=== PATIENT | female | born 1975 | race Caucasian/White ===

== ENCOUNTER → 2017-09-07 15:34 | Outpatient (CLI) | payer OTHER, SELFPAY ==
[2017-09-11 12:00] LABS: Fats, Neutral Normal (.); Fats, Total Normal (.)
== END ==
PROVIDERS: Family Provider Family Medicine; PCP Family Medicine; Visit Provider Family Medicine
DX: R19.7 Diarrhea, unspecified (principal)
CPT/HCPCS: 82705; 83630; 87493; 87506

== ENCOUNTER → 2017-09-13 15:08 | Outpatient (CLI) | payer OTHER, SELFPAY ==
[2017-09-13 18:15] LABS: Free T3 1.8 pg/mL (2.18-3.98); T4 Free Direct 1.11 ng/dL (0.76-1.46); Thyroid Stim Hormone (TSH) 0.95 uIU/mL (0.358-3.74)
== END ==
PROVIDERS: Family Provider Family Medicine; PCP Family Medicine; Visit Provider Family Medicine
DX: E03.9 Hypothyroidism, unspecified (principal)
CPT/HCPCS: 36415; 84439; 84443; 84481

== ENCOUNTER → 2018-04-11 12:25 | Outpatient (CLI) | payer OTHER, SELFPAY ==
[2018-04-11 15:42] LABS: Absolute Lymphocyte Count 1.83 X10^3/ul (0.83-4.51); Absolute Neutrophil Count 2.2 X10^3/uL (2.0-7.7); Basophil# 0.02 X10^3/uL; Basophil% 0.5 % (0-1); Eosinophil# 0.06 X10^3/uL; Eosinophils% 1.4 % (0-5); Hematocrit 34.7 % (37-47); Lymphocyte # 1.83 X10^3/ul (4.0); Lymphocyte % 42.1 % (19-41); Mean Corp Hgb Conc 31.7 g/gl (32-36); Mean Corpuscular Hgb 28.9 pg (27.0-32.0); Mean Corpuscular Volume 91.1 fL (81-99); Mean Platelet Vol. 11.8 fl (6.2-12.0); Monocyte# 0.27 X10^3/uL; Monocyte% 6.2 % (0-10); Neutrophil # 2.17 X10^3/uL (2.7-7.7); Neutrophil % 49.8 % (47-70); Platelet Count 239 K/mm3 (150-450); RBC Distribution Width SD 45.5 fl (35.1-43.9); Red Blood Count 3.81 M/mm3 (4.2-5.4); White Blood Count 4.4 K/mm3 (4.4-11.0)
[2018-04-11 15:45] LABS: POSITIVE COUNT NO; POSITIVE DIFFERENTIAL NO; POSITIVE MORPHOLOGY NO
[2018-04-11 15:57] LABS: Erythrocyte Sedimentation Rate 12 mm/hr (0-20)
[2018-04-11 15:58] LABS: AST(SGOT) 24 U/L (15-37); Alanine Aminotransfer ALT/SGPT 27 U/L (13-56); Albumin, Serum 3.7 g/dL (3.2-5.0); Alkaline Phosphatase 69 U/L (45-117); Amylase 99 U/L (25-115); Anion Gap 7 (5-15); BUN 14 mg/dL (7-18); BUN/Creat Ratio 18.1 RATIO (10-20); CRP < 2.90 mg/L (0.0-3.0); Calcium,Total 8.3 mg/dL (8.5-10.1); Chloride 103 mmol/L (98-107); Creatinine, Serum 0.77 mg/dL (0.55-1.02); EST Glomerular Filtration Rate 87 mL/min (>60); Est Glom Filt Rate - Afr Amer 105 mL/min (>60); Globulin 3.7 g/dL (2.2-4.2); Glucose 69 mg/dL (74-106); Lipase 324 U/L (73-393); Potassium 4.1 mmol/L (3.5-5.1); Protein, Total 7.4 g/dL (6.4-8.2); Sodium Level 139 mmol/L (136-145)
== END ==
PROVIDERS: Family Provider Family Medicine; PCP Family Medicine; Visit Provider Family Medicine
DX: R10.9 Unspecified abdominal pain (principal)
CPT/HCPCS: 36415; 80053; 82150; 83690; 85025; 85652; 86140

== ENCOUNTER → 2018-08-22 12:10 | Outpatient (CLI) | payer OTHER, SELFPAY ==
--- NOTE | 2018-08-22 12:19 | RAD_ITS ---
STUDY: X-RAY CHEST REASON FOR EXAM: Female, 43 years old. Difficulty breathing. TECHNIQUE: PA and lateral chest. COMPARISON: None. FINDINGS: The lungs are clear and expanded. There is no demonstrated pleural abnormality. Normal size heart. Normal mediastinum and andrew. Normal visualized pulmonary arteries. Normal visualized aortic arch and descending thoracic aorta. There is a mild thoracic dextroscoliosis. Normal visualized ribs, clavicles, and shoulders. There is no demonstrated abnormality of the visualized soft tissue structures of the upper abdomen. RAD/Chest PA and Lateral IMPRESSION: Mild dextroscoliosis, otherwise negative x-ray examination of the chest. Electronically Signed: Andree Patrick MD at 0:02 EST Tel , Service support ,
[2018-08-22 14:25] LABS: Absolute Lymphocyte Count 1.79 X10^3/ul (0.83-4.51); Absolute Neutrophil Count 2.4 X10^3/uL (2.0-7.7); Basophil# 0.04 X10^3/uL; Basophil% 0.9 % (0-1); Eosinophil# 0.06 X10^3/uL; Eosinophils% 1.3 % (0-5); Hematocrit 36.2 % (37-47); Hemoglobin 11.2 g/dl (12.0-15.0); Lymphocyte # 1.79 X10^3/ul (4.0); Lymphocyte % 38.7 % (19-41); Mean Corp Hgb Conc 30.9 g/gl (32-36); Mean Corpuscular Hgb 26.7 pg (27.0-32.0); Mean Corpuscular Volume 86.2 fL (81-99); Mean Platelet Vol. 11.9 fl (6.2-12.0); Monocyte# 0.36 X10^3/uL; Monocyte% 7.8 % (0-10); Neutrophil # 2.37 X10^3/uL (2.7-7.7); Neutrophil % 51.1 % (47-70); Platelet Count 227 K/mm3 (150-450); RBC Distribution Width CV 14.9 % (11.6-14.6); RBC Distribution Width SD 46.1 fl (35.1-43.9); White Blood Count 4.6 K/mm3 (4.4-11.0)
[2018-08-22 14:27] LABS: Erythrocyte Sedimentation Rate 8 mm/hr (0-20); POSITIVE COUNT NO; POSITIVE DIFFERENTIAL NO; POSITIVE MORPHOLOGY NO
[2018-08-22 14:42] LABS: CRP < 2.90 mg/L (0.0-3.0)
== END ==
PROVIDERS: Family Provider Family Medicine; PCP Family Medicine; Referring Provider Family Medicine; Visit Provider Family Medicine
DX: R22.2 Localized swelling, mass and lump, trunk (principal)
CPT/HCPCS: 36415; 71046; 85025; 85652; 86140

== ENCOUNTER → 2018-09-05 13:03 | Outpatient (CLI) | payer OTHER, SELFPAY ==
--- NOTE | 2018-09-05 13:10 | CT_ITS ---
STUDY: CT CHEST WITH CONTRAST REASON FOR EXAM: Female, 43 years old. Supraclavicular fossa fullness on the left. RADIATION DOSAGE (If Supplied By Facility): CTDIvol = ( 8.31 ) mGy, DLP = ( 259.66 ) mGycm TECHNIQUE: Transaxial imaging was performed following intravenous administration of Isovue 300 100 IV. Individualized dose optimization techniques were used for this CT. COMPARISON: None. FINDINGS: The lungs are normal. There is no demonstrated pleural abnormality. Normal heart and pericardium. Normal mediastinum. Normal hilar regions. Normal enhanced pulmonary arteries. Normal aorta arch and descending thoracic aorta. Mild dextroconvex scoliosis. Otherwise normal skeletal structures. Normal clavicles. No evidence for adenopathy or mass. There is no demonstrated abnormality of the visualized upper abdomen. CT/Chest WITH Contrast IMPRESSION: Normal enhanced CT Chest examination. Electronically Signed: Davide Cheng MD at 23:03 EST , Service support ,
--- NOTE | 2018-09-05 13:25 | RAD_ITS ---
STUDY: X-RAY CHEST REASON FOR EXAM: Female, 43 years old. DYSPNEA, SUPRACLAVICULAR FOSSA FULLNESS; TECHNIQUE: Frontal and lateral views of the chest. COMPARISON: 08/22/2018. FINDINGS: The lungs are clear and expanded. There is no demonstrated pleural abnormality. Normal size heart. Normal mediastinum and andrew. Normal visualized pulmonary arteries. Normal visualized aortic arch and descending thoracic aorta. There is a dextroscoliosis of the thoracic spine. Normal visualized ribs, clavicles, and shoulders. There is no demonstrated abnormality of the visualized soft tissue structures of the upper abdomen. RAD/Chest PA and Lateral IMPRESSION: No acute chest disease. Electronically Signed: Davide Cheng MD at 20:06 EST , Service support ,
== END ==
PROVIDERS: Family Provider Family Medicine; PCP Family Medicine; Referring Provider Family Medicine; Visit Provider Family Medicine
DX: R22.2 Localized swelling, mass and lump, trunk (principal)
CPT/HCPCS: 71046; 71260; Q9967

== ENCOUNTER → 2018-09-10 16:34 | Outpatient (CLI) | payer OTHER, SELFPAY ==
[2018-09-10 17:48] LABS: Absolute Lymphocyte Count 1.82 X10^3/ul (0.83-4.51); Absolute Neutrophil Count 1.9 X10^3/uL (2.0-7.7); Basophil# 0.04 X10^3/uL; Basophil% 0.9 % (0-1); Eosinophil# 0.07 X10^3/uL; Eosinophils% 1.6 % (0-5); Hematocrit 34.5 % (37-47); Hemoglobin 10.6 g/dl (12.0-15.0); Lymphocyte # 1.82 X10^3/ul (4.0); Lymphocyte % 42.7 % (19-41); Mean Corp Hgb Conc 30.7 g/gl (32-36); Mean Corpuscular Hgb 26.4 pg (27.0-32.0); Mean Platelet Vol. 11.4 fl (6.2-12.0); Monocyte% 9.4 % (0-10); Neutrophil # 1.93 X10^3/uL (2.7-7.7); Neutrophil % 45.4 % (47-70); Platelet Count 260 K/mm3 (150-450); RBC Distribution Width SD 46.1 fl (35.1-43.9); Red Blood Count 4.01 M/mm3 (4.2-5.4); White Blood Count 4.3 K/mm3 (4.4-11.0)
[2018-09-10 17:49] LABS: POSITIVE COUNT NO; POSITIVE DIFFERENTIAL NO; POSITIVE MORPHOLOGY NO
[2018-09-10 18:01] LABS: Erythrocyte Sedimentation Rate 16 mm/hr (0-20)
[2018-09-10 18:21] LABS: Vitamin B12 663 pg/mL (211-911); Vitamin D,25 Hydroxy 22.2 ng/mL (29.95-100.01)
[2018-09-10 18:34] LABS: ALB/GLOB Ratio 1.1 RATIO (0.9-2.4); AST(SGOT) 35 U/L (15-37); Alanine Aminotransfer ALT/SGPT 36 U/L (13-56); Alkaline Phosphatase 76 U/L (45-117); Anion Gap 8 (5-15); BUN 11 mg/dL (7-18); BUN/Creat Ratio 15.6 RATIO (10-20); CRP < 2.90 mg/L (0.0-3.0); Calcium,Total 8.1 mg/dL (8.5-10.1); Chloride 104 mmol/L (98-107); EST Glomerular Filtration Rate 97 mL/min (>60); Est Glom Filt Rate - Afr Amer 117 mL/min (>60); Globulin 3.6 g/dL (2.2-4.2); Glucose 69 mg/dL (74-106); Iron 27 ug/dL (50-170); Potassium 3.8 mmol/L (3.5-5.1); Protein, Total 7.6 g/dL (6.4-8.2); Sodium Level 140 mmol/L (136-145); T4 Free Direct 1.08 ng/dL (0.76-1.46); Thyroid Stim Hormone (TSH) 4.07 uIU/mL (0.358-3.74)
[2018-09-13 18:04] LABS: Free T3 1.7 pg/mL (2.18-3.98)
[2018-09-15 03:03] LABS: Alternaria alternata <0.10 kU/L (Class 0); Aspergillus fumigatus <0.10 kU/L (Class 0); Bahia Grass <0.10 kU/L (Class 0); Beef <0.10 kU/L (Class 0); Bermuda Grass <0.10 kU/L (Class 0); Bluegrass, Kentucky <0.10 kU/L (Class 0); Cat Hair/Dander, Standard <0.10 kU/L (Class 0); Cedar, Mountain <0.10 kU/L (Class 0); Chocolate <0.10 kU/L (Class 0); Cladosporium herbarum <0.10 kU/L (Class 0); Cockroach, American <0.10 kU/L (Class 0); Corn <0.10 kU/L (Class 0); D farinae Mite <0.10 kU/L (Class 0); D pteronyssinus <0.10 kU/L (Class 0); Dog Epithelia <0.10 kU/L (Class 0); Egg, Whole <0.10 kU/L (Class 0); Elm, American White <0.10 kU/L (Class 0); Hazelnut Tree <0.10 kU/L (Class 0); Hickory, White <0.10 kU/L (Class 0); Johnson Grass <0.10 kU/L (Class 0); Maple/Box Elder <0.10 kU/L (Class 0); Milk (Cow) <0.10 kU/L (Class 0); Mucor racemosus <0.10 kU/L (Class 0); Mugwort <0.10 kU/L (Class 0); Mulberry, White <0.10 kU/L (Class 0); Nettle <0.10 kU/L (Class 0); Oak, White <0.10 kU/L (Class 0); Peanut <0.10 kU/L (Class 0); Penicillium chrysogen <0.10 kU/L (Class 0); Pigweed, Rough <0.10 kU/L (Class 0); Plantain, English <0.10 kU/L (Class 0); Pork <0.10 kU/L (Class 0); Ragweed, Short/Common <0.10 kU/L (Class 0); Sheep Sorrel(Dock) <0.10 kU/L (Class 0); Soybean <0.10 kU/L (Class 0); Stemphylium herbarum <0.10 kU/L (Class 0); Sweet Gum <0.10 kU/L (Class 0); Sycamore, American <0.10 kU/L (Class 0); Wheat <0.10 kU/L (Class 0)
[2018-09-16 10:59] LABS: ANTINUCLEAR ANTIBODIES DIRECT Negative (Negative)
== END ==
LOC: MFPLAB 16:34
PROVIDERS: Family Provider Family Medicine; PCP Family Medicine; Referring Provider Family Medicine; Visit Provider Family Medicine
DX: E07.89 Other specified disorders of thyroid (principal); R21 Rash and other nonspecific skin eruption; R06.00 Dyspnea, unspecified
CPT/HCPCS: 36415; 80053; 82306; 82607; 83540; 84439; 84443; 84481; 85025; 85652; 86003; 86005; 86038; 86140

== ENCOUNTER → 2018-09-17 11:19 | Outpatient (CLI) | payer OTHER, SELFPAY ==
[2018-09-17 16:06] LABS: PTHIN 30.1 pg/mL (18.4-80.1)
[2018-09-17 16:08] LABS: Free T3 1.9 pg/mL (2.18-3.98); T4 Free Direct 1.18 ng/dL (0.76-1.46)
== END ==
PROVIDERS: Family Provider Family Medicine; PCP Family Medicine; Referring Provider Family Medicine; Visit Provider Family Medicine
DX: E83.51 Hypocalcemia (principal); E07.89 Other specified disorders of thyroid
CPT/HCPCS: 36415; 82330; 83970; 84439; 84481

== ENCOUNTER → 2018-09-25 13:52 | Outpatient (CLI) | payer OTHER, SELFPAY ==
--- NOTE | 2018-09-25 13:57 | ECHOD_ITS ---
Reason For Study: Dyspnea Procedure This was a 2D Doppler, Color Flow transthoracic echocardiogram. Technically difficult due to Breast Implants. Exam performed in department. Left Ventricle Normal size and thickness. The estimated ejection fraction is 65 %. Normal diastology for age. No regional wall motion abnormalities noted. Right Ventricle Normal size and thickness. Normal systolic function. Atria Normal left atrium. Normal right atrium. Normal atrial septum. Mitral Valve The mitral valve is structurally normal. No prolapse or stenosis seen. Tricuspid Valve Normal tricuspid valve. Unable to estimate RV systolic pressure due to inadequate jet, pulmonary artery pressure probably normal. Aortic Valve Normal aortic valve. Trisinus/trileaflet aortic valve. Pulmonic Valve Normal pulmonic valve. Great Vessels Normal aortic root. Normal arch. Normal inferior vena cava. Inferior vena cava collapse with sniff. Pericardium/Pleural No pericardial effusion. MMode/2D Measurements & Calculations LVIDd: 4.1 cm IVSd: 0.76 cm Ao root diam: 2.9 cm LVIDs: 2.7 cm LVPWd: 0.71 cm LA dimension: 2.9 cm RVDd: 2.3 cm FS: 33.9 % LAV(MOD-bp): 32.1 ml LVAd ap4: 23.8 cm2 SV(MOD-sp4): 33.9 ml LAV(MOD-bp) Indexed: 20.4 ml/m2 EDV(MOD-sp4): 62.5 ml LAV(MOD-sp2): 35.7 ml EDV(sp4-el): 62.9 ml LAV(MOD-sp4): 27.8 ml LVAs ap4: 14.7 cm2 ESV(MOD-sp4): 28.6 ml ESV(sp4-el): 29.3 ml EF(MOD-sp4): 54.2 % EF(sp4-el): 53.4 % SV(sp4-el): 33.6 ml LA A4 area: 12.7 cm2 RA A4 area: 6.3 cm2 Time Measurements MV dec time: 0.24 sec Doppler Measurements & Calculations MV E max ryan: 97.1 cm/sec Lat Peak E' Ryan: 16.8 cm/sec Med Peak E' Ryan: 14.2 cm/sec MV A max ryan: 69.9 cm/sec E/E' lat: 5.8 E/E' med: 6.8 MV E/A: 1.4 MV V2 max: 104.9 cm/sec MV P1/2t max ryan: 105.7 cm/sec Ao V2 max: 106.8 cm/sec MV max P.4 mmHg MV P1/2t: 76.2 msec Ao max P.6 mmHg MV V2 mean: 56.8 cm/sec Ao V2 mean: 70.0 cm/sec MV mean P.6 mmHg MV dec slope: 406.2 cm/sec2 Ao mean P.2 mmHg MV V2 VTI: 26.8 cm MVA(P1/2t): 2.9 cm2 Ao V2 VTI: 20.2 cm LV V1 max: 93.2 cm/sec PA V2 max: 95.3 cm/sec LV V1 max P.5 mmHg LV V1 mean P.8 mmHg LV V1 mean: 61.9 cm/sec LV V1 VTI: 20.6 cm Interpretation Summary The estimated ejection fraction is 65 %. Normal diastology for age. Unable to estimate RV systolic pressure due to inadequate jet, pulmonary artery pressure probably normal. There is no comparison study available. Ordering Physician: Hugo Rodriguez Referring Physician: Hugo Rodriguez Performed By: Cuate Riggs RCS
== END ==
LOC: CVS 13:55
PROVIDERS: Family Provider Family Medicine; PCP Family Medicine; Referring Provider Family Medicine; Visit Provider Family Medicine
DX: R06.00 Dyspnea, unspecified (principal)
CPT/HCPCS: 93306

== ENCOUNTER → 2018-10-03 15:24 | Outpatient (CLI) | payer OTHER, SELFPAY ==
--- NOTE | 2018-10-03 15:53 | CT_ITS ---
STUDY: CT ABDOMEN AND PELVIS WITH CONTRAST REASON FOR EXAM: Female, 43 years old. Epigastric pain. History of pancreatitis. Patient is on menstrual cycle. Surgical history of appendectomy and tubal ligation. RADIATION DOSAGE (If Supplied By Facility): CTDIvol = ( 13.93 ) mGy, DLP = ( 368.19 ) mGycm TECHNIQUE: Transaxial images were obtained from the dome of the diaphragm to the symphysis pubis with oral contrast. 100ML IV/Oral Isovue 300 was administered. Sagittal and coronal images were reconstructed. Individualized dose optimization techniques were used for this CT. COMPARISON: None. FINDINGS: The visualized lung bases are unremarkable. The visualized portions of the heart are within normal limits. Normal liver. The patent portal vein diameter is 12 mm. Normal gallbladder. There is mild ectasia of the extrahepatic biliary system, common bile duct measuring 10 mm in diameter. Normal spleen. Normal size and contour of the pancreas. The central pancreatic duct diameter is 4.5 mm. Normal bilateral adrenal glands. Normal right kidney. Normal left kidney. No hydronephrosis. Normal visualized stomach. Normal small intestine. Normal colon. There are surgical clips in the region of the appendix consistent with a prior appendectomy. Normal abdominal aorta. Normal inferior vena cava. Normal retroperitoneum. Nearly empty urinary bladder. Normal size retroverted/retroflexed uterus. Generally gas filled tampon is incidentally noted in the vaginal vault. Heterogeneity in the area of the adnexa consistent with normal follicular cysts. Minimal fluid suggested in the cul-de-sac. Normal abdominal wall. The patient is positioned with a 15 degree levoscoliosis centered at L2. Incidental note of bilateral breast implants. CT/Abdomen/Pelvis WITH Contrast IMPRESSION: 1. Prior appendectomy. The bowel is otherwise unremarkable without sign of obstruction. 2. Normal size retroverted/retroflexed uterus. Tampon noted in the vaginal vault. There are follicular cysts in the ovaries. Minimal fluid suggested in the cul-de-sac. 3. Mild ectasia of the common bile duct and central pancreatic duct without demonstrated obstructive pathology. There may be some degree of partial obstruction at the sphincter of Sarthak, but this is of uncertain clinical significance. Electronically Signed: Jorge Rosa MD at 12:23 EDT , Service support ,
[2018-10-03 17:34] LABS: Basophil# 0.02 X10^3/uL; Basophil% 0.5 % (0-1); Eosinophil# 0.11 X10^3/uL; Eosinophils% 2.6 % (0-5); Lymphocyte % 43.1 % (19-41); Mean Corp Hgb Conc 31.4 g/gl (32-36); Mean Corpuscular Hgb 28.2 pg (27.0-32.0); Mean Corpuscular Volume 89.7 fL (81-99); Mean Platelet Vol. 11.8 fl (6.2-12.0); Monocyte# 0.28 X10^3/uL; Monocyte% 6.7 % (0-10); Neutrophil # 1.97 X10^3/uL (2.7-7.7); Neutrophil % 47.1 % (47-70); POSITIVE COUNT NO; POSITIVE DIFFERENTIAL NO; POSITIVE MORPHOLOGY NO; Platelet Count 240 K/mm3 (150-450); RBC Distribution Width SD 62.4 fl (35.1-43.9); RET-HE 33.2 pg (30-35); Reticulocyte Count 1.68 % (0.5-1.5); White Blood Count 4.2 K/mm3 (4.4-11.0)
[2018-10-03 17:43] LABS: Ferritin 24 ng/mL (8-252); Iron 95 ug/dL (50-170); Iron Binding Capacity,Total 315 ug/dL (250-450); PERCENT IRON SATURATION 30.2 % (15.0-55.0)
[2018-10-07 20:06] LABS: Endomysial Antibody IgA Negative (Negative)
[2018-10-08 13:11] LABS: Immunoglobulin A 174 mg/dL (87-352); t-Transglutaminase IgA <2 U/mL (0-3)
== END ==
PROVIDERS: Family Provider Family Medicine; PCP Family Medicine; Referring Provider Family Medicine; Visit Provider Family Medicine
DX: D64.9 Anemia, unspecified (principal); R22.1 Localized swelling, mass and lump, neck
CPT/HCPCS: 36415; 74177; 82728; 82784; 83516; 83540; 83550; 85025; 85045; 86255; Q9967

== ENCOUNTER → 2018-10-16 14:17 | Outpatient (CLI) | payer OTHER, SELFPAY ==
[2018-10-16 16:35] LABS: Erythrocyte Sedimentation Rate 5 mm/hr (0-20)
[2018-10-16 16:39] LABS: ALB/GLOB Ratio 1.2 RATIO (0.9-2.4); AST(SGOT) 32 U/L (15-37); Alanine Aminotransfer ALT/SGPT 40 U/L (13-56); Alkaline Phosphatase 72 U/L (45-117); Amylase 96 U/L (25-115); Anion Gap 8 (5-15); BUN 10 mg/dL (7-18); BUN/Creat Ratio 13.8 RATIO (10-20); CRP < 2.90 mg/L (0.0-3.0); Calcium,Total 8.2 mg/dL (8.5-10.1); Chloride 104 mmol/L (98-107); Creatinine, Serum 0.72 mg/dL (0.55-1.02); EST Glomerular Filtration Rate 94 mL/min (>60); Est Glom Filt Rate - Afr Amer 113 mL/min (>60); Free T3 1.9 pg/mL (2.18-3.98); Globulin 3.3 g/dL (2.2-4.2); Glucose 64 mg/dL (74-106); Lipase 246 U/L (73-393); Potassium 3.6 mmol/L (3.5-5.1); Protein, Total 7.3 g/dL (6.4-8.2); Rheumatoid Factor < 10.0 IU/mL (<15); Sodium Level 142 mmol/L (136-145); T4 Free Direct 1.11 ng/dL (0.76-1.46); Thyroid Stim Hormone (TSH) 2.28 uIU/mL (0.358-3.74); Uric Acid 3.9 mg/dL (2.6-6.0)
[2018-10-16 17:09] LABS: HIV - WCH Non-Reactive (Nonreactive)
[2018-10-19 15:55] LABS: ANTINUCLEAR ANTIBODIES DIRECT Negative (Negative)
[2018-10-21 11:03] LABS: T4 Total, Thyroxin 11.4 ug/dL (4.8-13.9)
== END ==
PROVIDERS: Family Provider Family Medicine; PCP Family Medicine; Referring Provider Family Medicine; Visit Provider Family Medicine
DX: E07.89 Other specified disorders of thyroid (principal); R10.9 Unspecified abdominal pain; M25.50 Pain in unspecified joint; R53.83 Other fatigue
CPT/HCPCS: 36415; 80053; 82150; 83690; 84436; 84439; 84443; 84481; 84550; 85652; 86038; 86140; 86431; 86703

== ENCOUNTER → 2018-11-13 16:53 | Outpatient (CLI) | payer OTHER, SELFPAY ==
[2018-11-13 18:46] LABS: Free T3 2.2 pg/mL (2.18-3.98); T4 Total, Thyroxin 12.7 ug/dL (4.8-13.9); Thyroid Stim Hormone (TSH) 2.39 uIU/mL (0.358-3.74)
[2018-11-13 19:44] LABS: T4 Total, Thyroxin 12.5 ug/dL (4.8-13.9)
== END ==
PROVIDERS: Family Medicine; Family Provider Family Medicine; PCP Family Medicine; Referring Provider Family Medicine; Visit Provider Family Medicine
DX: E07.89 Other specified disorders of thyroid (principal)
CPT/HCPCS: 36415; 84436; 84443; 84481

== ENCOUNTER → 2019-05-07 16:01 | Outpatient (CLI) | payer OTHER, SELFPAY ==
--- NOTE | 2019-05-07 16:07 | RAD_ITS ---
STUDY: X-RAY - LUMBAR SPINE REASON FOR EXAM: Female, 44 years old. Low back pain. TECHNIQUE: 5 view(s) of the lumbar spine were obtained. COMPARISON: None FINDINGS: Normal lumbar lordosis. There is scoliosis, convexity to the left. There is a normal alignment of the vertebrae. Normal vertebral bodies and endplates. Normal disc space heights. There is no demonstrated fracture. There is no demonstrated spondylolysis of the pars interarticulares. There is mild hypertrophy involving the facets from L3 L4-L5 S1. The soft tissue structures are unremarkable. RAD/L/S Spine Min 4 Views IMPRESSION: Multilevel spondylosis/degenerative disease otherwise normal x-ray examination of the lumbar spine. Electronically Signed: Natalya Champion MD at 3:00 EDT , Service support ,
[2019-05-07 17:51] LABS: Hematocrit 46.4 % (37-47); Hemoglobin 15.4 g/dL (12.0-15.0); Mean Corp Hgb Conc 33.2 g/dL (32-36); Mean Corpuscular Hgb 32.1 pg (27.0-32.0); Mean Corpuscular Volume 96.7 fL (81-99); Mean Platelet Vol. 11.4 fl (6.2-12.0); Platelet Count 241 K/mm3 (150-450); RBC Distribution Width CV 11.6 % (11.6-14.6); RBC Distribution Width SD 41.1 fl (35.1-43.9); White Blood Count 7.4 K/mm3 (4.4-11.0)
[2019-05-07 18:15] LABS: Vitamin D,25 Hydroxy 43.8 ng/mL (29.95-100.01)
[2019-05-07 18:17] LABS: ALB/GLOB Ratio 1.2 RATIO (0.9-2.4); AST(SGOT) 14 U/L (15-37); Alanine Aminotransfer ALT/SGPT 22 U/L (13-56); Albumin, Serum 4.4 g/dL (3.2-5.0); Alkaline Phosphatase 64 U/L (45-117); Anion Gap 8 (5-15); BUN 15 mg/dL (7-18); BUN/Creat Ratio 17.1 RATIO (10-20); Calcium,Total 9.2 mg/dL (8.5-10.1); Chloride 100 mmol/L (98-107); Creatinine, Serum 0.88 mg/dL (0.55-1.02); EST Glomerular Filtration Rate 75 mL/min (>60); Est Glom Filt Rate - Afr Amer 90 mL/min (>60); Globulin 3.7 g/dL (2.2-4.2); Glucose 157 mg/dL (74-106); Potassium 3.5 mmol/L (3.5-5.1); Protein, Total 8.1 g/dL (6.4-8.2); Sodium Level 139 mmol/L (136-145)
== END ==
PROVIDERS: Family Provider Family Medicine; PCP Family Medicine; Referring Provider Family Medicine; Visit Provider Family Medicine
DX: M54.30 Sciatica, unspecified side (principal); R10.9 Unspecified abdominal pain; E07.89 Other specified disorders of thyroid
CPT/HCPCS: 36415; 72110; 80053; 82306; 84443; 85027

== ENCOUNTER → 2019-11-05 16:45 | Outpatient (CLI) | payer OTHER, SELFPAY ==
[2019-11-05 17:35] LABS: Absolute Lymphocyte Count 1.77 X10^3/uL (0.83-4.51); Absolute Neutrophil Count 2.5 X10^3/uL (2.0-7.7); Basophil# 0.03 X10^3/uL; Basophil% 0.6 % (0-1); Eosinophil# 0.07 X10^3/uL; Eosinophils% 1.5 % (0-5); Hematocrit 40.2 % (37-47); Hemoglobin 13.3 g/dL (12.0-15.0); Lymphocyte # 1.77 X10^3/ul (4.0); Lymphocyte % 37.2 % (19-41); Mean Corp Hgb Conc 33.1 g/dL (32-36); Mean Corpuscular Hgb 31.5 pg (27.0-32.0); Mean Corpuscular Volume 95.3 fL (81-99); Mean Platelet Vol. 11.1 fl (6.2-12.0); Monocyte# 0.43 X10^3/uL; NRBC Flagged by Analyzer 0 % (0-5); Neutrophil # 2.45 X10^3/uL (2.7-7.7); Neutrophil % 51.5 % (47-70); Platelet Count 205 K/mm3 (150-450); RBC Distribution Width CV 11.5 % (11.6-14.6); RBC Distribution Width SD 39.8 fl (35.1-43.9); Red Blood Count 4.22 M/mm3 (4.2-5.4); White Blood Count 4.8 K/mm3 (4.4-11.0)
[2019-11-05 17:49] LABS: Erythrocyte Sedimentation Rate 4 mm/hr (0-20)
[2019-11-05 18:15] LABS: ALB/GLOB Ratio 1.2 RATIO (0.9-2.4); AST(SGOT) 17 U/L (15-37); Alanine Aminotransfer ALT/SGPT 22 U/L (13-56); Alkaline Phosphatase 62 U/L (45-117); Amylase 79 U/L (25-115); Anion Gap 5 (5-15); BUN 9 mg/dL (7-18); BUN/Creat Ratio 12.4 RATIO (10-20); Calcium,Total 8.8 mg/dL (8.5-10.1); Chloride 106 mmol/L (98-107); Creatinine, Serum 0.73 mg/dL (0.55-1.02); EST Glomerular Filtration Rate 93 mL/min (>60); Est Glom Filt Rate - Afr Amer 112 mL/min (>60); Ferritin 47 ng/mL (8-252); Globulin 3.3 g/dL (2.2-4.2); Glucose 89 mg/dL (74-106); Iron 119 ug/dL (50-170); Lipase 170 U/L (73-393); Protein, Total 7.3 g/dL (6.4-8.2); Sodium Level 141 mmol/L (136-145); T4 Free Direct 1.27 ng/dL (0.76-1.46); Thyroid Stim Hormone (TSH) 0.45 uIU/mL (0.358-3.74)
[2019-11-05 18:19] LABS: Vitamin D,25 Hydroxy 50.6 ng/mL
== END ==
LOC: MTLAB 16:47
PROVIDERS: PCP Family Medicine; Referring Provider Family Medicine; Visit Provider Family Medicine
DX: R10.9 Unspecified abdominal pain (principal); D64.9 Anemia, unspecified; E07.89 Other specified disorders of thyroid; E55.9 Vitamin D deficiency, unspecified
CPT/HCPCS: 36415; 80053; 82150; 82306; 82728; 83540; 83690; 84439; 84443; 85025; 85652

== ENCOUNTER → 2020-02-04 14:42 | Outpatient (CLI) | payer OTHER, SELFPAY ==
[2020-02-04 17:54] LABS: Absolute Lymphocyte Count 1.69 X10^3/uL (0.83-4.51); Absolute Neutrophil Count 2.4 X10^3/uL (2.0-7.7); Basophil# 0.03 X10^3/uL; Basophil% 0.7 % (0-1); Eosinophil# 0.03 X10^3/uL; Eosinophils% 0.7 % (0-5); Hemoglobin 12.9 g/dL (12.0-15.0); Lymphocyte # 1.69 X10^3/ul (4.0); Lymphocyte % 37.4 % (19-41); Mean Corp Hgb Conc 32.3 g/dL (32-36); Mean Corpuscular Hgb 32.3 pg (27.0-32.0); Mean Corpuscular Volume 100.3 fL (81-99); Mean Platelet Vol. 11.5 fl (6.2-12.0); Monocyte# 0.39 X10^3/uL; Monocyte% 8.6 % (0-10); NRBC Flagged by Analyzer 0 % (0-5); Neutrophil # 2.37 X10^3/uL (2.7-7.7); Neutrophil % 52.4 % (47-70); Platelet Count 223 K/mm3 (150-450); RBC Distribution Width CV 11.9 % (11.6-14.6); RBC Distribution Width SD 44.1 fl (35.1-43.9); Red Blood Count 3.99 M/mm3 (4.2-5.4); White Blood Count 4.5 K/mm3 (4.4-11.0)
[2020-02-04 18:09] LABS: Follicle Stimulating Hormone 5.8 mIU/mL; Luteinizing Hormone 4.8 mIU/mL; T4 Free Direct 1.24 ng/dL (0.76-1.46); Thyroid Stim Hormone (TSH) 1.77 uIU/mL (0.358-3.74)
[2020-02-05 01:28] LABS: Erythrocyte Sedimentation Rate < 1 mm/hr (0-20)
== END ==
PROVIDERS: PCP Family Medicine; Referring Provider Family Medicine; Visit Provider Family Medicine
DX: R23.2 Flushing (principal); M79.10 Myalgia, unspecified site; E07.89 Other specified disorders of thyroid; K81.9 Cholecystitis, unspecified
CPT/HCPCS: 36415; 82533; 83001; 83002; 84439; 84443; 85025; 85652

== ENCOUNTER 2021-10-05 08:27 | Outpatient (CLI) | payer OTHER, SELFPAY ==
[2021-10-05 12:02] LABS: ALB/GLOB Ratio 1.3 RATIO (0.9-2.4); AST(SGOT) 32 U/L (15-37); Alanine Aminotransfer ALT/SGPT 43 U/L (13-56); Alkaline Phosphatase 73 U/L (45-117); Anion Gap 6 (5-15); BUN 11 mg/dL (7-18); BUN/Creat Ratio 13.8 RATIO (10-20); Calcium,Total 8.5 mg/dL (8.5-10.1); Chloride 104 mmol/L (98-107); Cholesterol 145 mg/dL (200); EST Glomerular Filtration Rate 82 mL/min (>60); Est Glom Filt Rate - Afr Amer 100 mL/min (>60); Globulin 3.1 g/dL (2.2-4.2); Glucose 70 mg/dL (74-106); High Density Lipoprotein 59 mg/dL; Potassium 4.1 mmol/L (3.5-5.1); Protein, Total 7.1 g/dL (6.4-8.2); Sodium Level 141 mmol/L (136-145); Thyroid Stim Hormone (TSH) 7.46 uIU/mL (0.358-3.74); Triglycerides 56 mg/dL; Very Low Density Lipoprotein 11 mg/dL (5-40)
== END 2021-10-05 23:59 | disposition home or self-care (01) ==
LOC: MFPLAB 08:30
PROVIDERS: PCP Family Medicine; Referring Provider Family Medicine; Visit Provider Family Medicine
DX: Z00.00 Encounter for general adult medical examination without abnormal findings (principal); E03.9 Hypothyroidism, unspecified; M79.10 Myalgia, unspecified site
CPT/HCPCS: 36415; 80053; 80061; 84443

== ENCOUNTER → 2022-04-26 | Outpatient (CLI) | payer OTHER, SELFPAY ==
[2022-04-26 18:44] LABS: T4 Free Direct 1.13 ng/dL (0.76-1.46); Thyroid Stim Hormone (TSH) 3.68 uIU/mL (0.358-3.74)
== END | disposition home or self-care (01) ==
LOC: MFPLAB 16:41
PROVIDERS: PCP Family Medicine; Referring Provider Family Medicine; Visit Provider Family Medicine
DX: E03.9 Hypothyroidism, unspecified (principal)
CPT/HCPCS: 36415; 84439; 84443

== ENCOUNTER → 2022-11-01 | Outpatient (CLI) | payer OTHER, SELFPAY ==
[2022-11-01 18:30] LABS: Erythrocyte Sedimentation Rate 4 mm/hr (0-30)
[2022-11-01 18:32] LABS: Absolute Lymphocyte Count 1.57 X10^3/uL (0.83-4.51); Absolute Neutrophil Count 3.6 X10^3/uL (2.0-7.7); Basophil# 0.04 X10^3/uL; Basophil% 0.7 % (0-1); Eosinophil# 0.02 X10^3/uL; Eosinophils% 0.4 % (0-5); Hematocrit 38.3 % (37-47); Hemoglobin 12.2 g/dL (12.0-15.0); Lymphocyte # 1.57 X10^3/ul (0.83-4.51); Lymphocyte % 28.6 % (19-41); Mean Corp Hgb Conc 31.9 g/dL (32-36); Mean Corpuscular Hgb 28.1 pg (27.0-32.0); Mean Corpuscular Volume 88.2 fL (81-99); Mean Platelet Vol. 11.3 fl (6.2-12.0); Monocyte% 5.5 % (0-10); NRBC Flagged by Analyzer 0 % (0-5); Neutrophil # 3.55 X10^3/uL (2.7-7.7); Neutrophil % 64.6 % (47-70); Platelet Count 239 K/mm3 (150-450); RBC Distribution Width CV 13.6 % (11.6-14.6); Red Blood Count 4.34 M/mm3 (4.2-5.4); White Blood Count 5.5 K/mm3 (4.4-11.0)
[2022-11-01 18:57] LABS: ALB/GLOB Ratio 1.1 RATIO (0.9-2.4); AST(SGOT) 35 U/L (15-37); Alanine Aminotransfer ALT/SGPT 32 U/L (13-56); Albumin, Serum 3.8 g/dL (3.2-5.0); Alkaline Phosphatase 60 U/L (45-117); Anion Gap 6 (5-15); BUN 8 mg/dL (7-18); BUN/Creat Ratio 9.9 RATIO (10-20); Calcium,Total 8.8 mg/dL (8.5-10.1); Chloride 105 mmol/L (98-107); Creatinine, Serum 0.81 mg/dL (0.55-1.02); EST Glomerular Filtration Rate 81 mL/min (>60); Est Glom Filt Rate - Afr Amer 98 mL/min (>60); Free T3 1.9 pg/mL (2.18-3.98); Globulin 3.5 g/dL (2.2-4.2); Glucose 147 mg/dL (74-106); Potassium 3.9 mmol/L (3.5-5.1); Protein, Total 7.3 g/dL (6.4-8.2); Sodium Level 136 mmol/L (136-145); T4 Free Direct 1.45 ng/dL (0.76-1.46); Thyroid Stim Hormone (TSH) 0.31 uIU/mL (0.358-3.74)
== END | disposition home or self-care (01) ==
LOC: MFPLAB 16:32
PROVIDERS: PCP Family Medicine; Visit Provider Family Medicine
DX: M79.7 Fibromyalgia (principal); E03.9 Hypothyroidism, unspecified; E55.9 Vitamin D deficiency, unspecified
CPT/HCPCS: 36415; 80053; 82306; 84439; 84443; 84481; 85025; 85652

== ENCOUNTER → 2023-04-25 | Outpatient (CLI) | payer OTHER, SELFPAY ==
[2023-04-25 18:27] LABS: Free T3 1.3 pg/mL (2.18-3.98); T4 Free Direct 0.71 ng/dL (0.76-1.46); Thyroid Stim Hormone (TSH) 9.99 uIU/mL (0.358-3.74)
== END | disposition home or self-care (01) ==
PROVIDERS: PCP Family Medicine; Referring Provider Family Medicine; Visit Provider Family Medicine
DX: E03.9 Hypothyroidism, unspecified (principal)
CPT/HCPCS: 36415; 84439; 84443; 84481

== ENCOUNTER → 2023-06-05 | Outpatient (CLI) | payer OTHER, SELFPAY ==
[2023-06-05 16:22] LABS: Free T3 2.2 pg/mL (2.18-3.98); T4 Free Direct 1.38 ng/dL (0.76-1.46); Thyroid Stim Hormone (TSH) 0.35 uIU/mL (0.358-3.74)
== END | disposition home or self-care (01) ==
LOC: MTLAB 14:04
PROVIDERS: PCP Family Medicine; Referring Provider Family Medicine; Visit Provider Family Medicine
DX: E07.89 Other specified disorders of thyroid (principal)
CPT/HCPCS: 36415; 84439; 84443; 84481

== ENCOUNTER → 2023-06-28 | Outpatient (CLI) | payer OTHER, SELFPAY ==
--- NOTE | 2023-06-28 14:06 | CT_ITS ---
EXAM: CT CHEST WITHOUT INTRAVENOUS CONTRAST CLINICAL INDICATION: pulmonary nodule TECHNIQUE: Helically acquired images were obtained of the chest without intravenous contrast. This CT exam was performed using one or more of the following dose reduction techniques: automated exposure control, adjustment of the mA and/or kV according to patient size, and/or use of iterative reconstruction technique. RADIATION DOSE: CTDIvol = 6.28 mGy, DLP = 227.48 mGy-cm COMPARISON: 08/28/2018. FINDINGS: LUNGS AND PLEURAL SPACES: Small somewhat triangular lung nodule right lower lobe posterior medially that minimally abuts the pleura. This is unchanged since the previous examination dated 09/05/2018. 2 mm nodule laterally in the left upper lobe unchanged since previous exam. No pneumothorax. HEART: Unremarkable. Heart size is normal. No pericardial effusion. No significant coronary artery calcifications. MEDIASTINUM: Unremarkable. No mediastinal or hilar adenopathy. Esophagus is unremarkable. No hiatal hernia. THYROID: Unremarkable. No thyroid lesions. BONES/JOINTS: Unremarkable. No suspicious lytic or blastic abnormality. VASCULATURE: Unremarkable. Thoracic aorta is non-dilated. CT/Chest without Contrast IMPRESSION: 1. Small somewhat triangular lung nodule right lower lobe posterior medially that minimally abuts the pleura. This is unchanged since the previous examination dated 09/05/2018. Fleischner Society Guidelines suggest no further follow-up is necessary for patients with s low or high risk of malignancy. 2. 2 mm nodule laterally in the left upper lobe unchanged since previous exam. Fleischner Society Guidelines suggest no further follow-up is necessary for patients with s low risk of malignancy. Electronically Signed: Manuel Alonzo MD at 6:57 EST ,
== END | disposition home or self-care (01) ==
LOC: CT 14:05
PROVIDERS: PCP Family Medicine; Referring Provider Family Medicine; Visit Provider Family Medicine
DX: R91.1 Solitary pulmonary nodule (principal)
CPT/HCPCS: 71250

== ENCOUNTER 2024-01-04 17:23 | Emergency (ER) | payer OTHER, SELFPAY ==
[2024-01-04 17:24] VITALS: BP 136/90; PULSE 91; RESP 18; TEMP 36.4; O2SAT 97; BMI 22.1
--- NOTE | 2024-01-04 18:43 | CT_ITS ---
EXAM: CT HEAD WITHOUT INTRAVENOUS CONTRAST CLINICAL INDICATION: altered mental status TECHNIQUE: Multiple axial images were obtained of the head without intravenous contrast. This CT exam was performed using one or more of the following dose reduction techniques: automated exposure control, adjustment of the mA and/or kV according to patient size, and/or use of iterative reconstruction technique. RADIATION DOSE: CTDIvol = 44.99 mGy, DLP = 796.11 mGy-cm COMPARISON: No relevant prior studies available. FINDINGS: BRAIN AND EXTRA-AXIAL SPACES: Unremarkable. No intra- or extra-axial hemorrhage. No evidence of acute infarct. No intracranial mass or mass effect. There is preservation of the peoples/white matter interface. Posterior fossa structures are unremarkable. Ventricles are appropriate for age. No hydrocephalus. Basal cisterns are patent. BONES/JOINTS: Unremarkable. No discrete lytic or blastic abnormalities. SINUSES: Unremarkable as visualized. Clear. MASTOID AIR CELLS: Unremarkable. Clear. ORBITS: Visualized globes, extraocular muscles, optic nerves and retrobulbar fat appear unremarkable. CT/Brain/Head without Contrast IMPRESSION: Negative head/brain CT without intravenous contrast. Electronically Signed: Cornell Hess MD at 19:33 EDT ,
--- NOTE | 2024-01-04 18:46 | EDS_ITS ---
HPI <PALOMO Beal - Last Filed: 01/04/24 20:16> History of Present Illness Chief Complaint: Confusion Narrative Narrative: Patient is a 48-year-old female patient has history of anxiety, fibromyalgia, hypothyroidism who presents to the emergency department for multiple complaints. Patient dates over the last 2 weeks, she is noticed that her joints from her shoulders elbows to her ankles feel inflamed. Patient dates has been having more pain than usual in the tramadol she takes is not helping. She also states that over the last 2 weeks has been having difficulty remembering certain things, she has been messing up more at work. She has been dealing with increased stress secondary to her dealing with PTSD however the patient states that what is happening to her is not normal. This scared her because she forgot her 's birthday, as well as made some errors at work and she has a new job. Here for evaluation. Denies any headache. Denies any recent fevers or chills. [facility] <PALOMO Beal - Last Filed: 01/04/24 20:16> [facility] Medical History (Updated 01/04/24 @ 20:16 by PALOMO Beal) Crohn disease Fibromyalgia Home Medications ?Medication ?Instructions ?Recorded ?Last Taken ?Type citalopram 40 mg tablet (Celexa) 60 mg PO DAILY 03/27/14 Unknown History tramadol 50 mg tablet 100 mg PO BID 03/27/14 Unknown History Allergy/AdvReac Type Severity Reaction Status Date / Time No Known Allergies Allergy Verified 01/04/24 17:27 Social History Smoking Status: Unknown if ever smoked ROS <PALOMO Beal - Last Filed: 01/04/24 20:16> ROS ED ROS Narrative Constitutional: Negative for fever, chills, weight loss, weakness. Positive feeling fatigued Eyes: Negative for vision loss, vision change, double vision ENT: Negative for any sore throat, ear pain, congestion Cardiovascular: Negative for any chest pain, tightness, palpitations Respiratory: Negative for any cough, sputum production, hemoptysis, dyspnea, dyspnea on exertion, orthopnea Gastrointestinal: Negative for any abdominal pain, nausea, vomiting, diarrhea, constipation, blood in stool, blood in vomit : Negative for any urinary frequency, dysuria, retention, blood in urine Muscle skeletal: Negative for any neck pain, back pain. Positive for generalized myalgias to the shoulders, back, knees and ankles. Neurological: Negative for any headache, syncope, dizziness. Positive for forgetfulness, not thinking clearly Skin: Negative for any rashes, itching, abrasions, lacerations Psychiatric: Negative for any depression, anxiety, suicidal ideation, homicidal ideation. Positive for increased stress Hematologic: Negative for any excessive bruising, easy bleeding EXAM <PALOMO Beal - Last Filed: 01/04/24 20:16> Physical Exam Narrative Exam Narrative: Vital signs reviewed. Patient is in no obvious respiratory distress vital signs are stable. Patient is alert and orient x 4. Patient does seem to be slightly anxious, tearful. HEET: Head normocephalic atraumatic, TMs clear bilaterally. Posterior pharynx is clear, moist mucous membranes. Nares clear bilaterally. Neck: Supple with no lymphadenopathy or tenderness. No signs of meningismus. Cardiac: Regular rate and rhythm no murmurs gallops or rubs, equal peripheral pulses bilaterally. Respiratory: Lungs clear to auscultation bilaterally. No chest tenderness. Abdomen: Soft, nontender, nondistended. No abdominal bruit or pulsatile masses. No hepatosplenomegaly Extremities: No peripheral edema, no signs of gross trauma or deformity. Active full range of motion of all extremities. Neuro: Cranial nerves II through XII intact, no focal neurological deficits. Skin: Clean dry and intact with no rash, purpura, petechiae, vesicles or pustules. Backs/flank: No CVA tenderness, no midline spinal tenderness, no deformity. Psych: Normal mood and affect. No SI, HI or acute psychosis. Const Vital Signs: 01/04/24 17:24 01/04/24 19:30 Temperature 97.6 F L Temperature Source Temporal Pulse Rate 91 80 Respiratory Rate 18 14 Blood Pressure 136/90 H 107/71 Blood Pressure Mean 105 84 Pulse Ox 97 98 Oxygen Delivery Method Room Air <Dr. Emmett Houston DO - Last Filed: 01/04/24 20:33> Physical Exam Const Vital Signs: 01/04/24 17:24 01/04/24 19:30 Temperature 97.6 F L Temperature Source Temporal Pulse Rate 91 80 Respiratory Rate 18 14 Blood Pressure 136/90 H 107/71 Blood Pressure Mean 105 84 Pulse Ox 97 98 Oxygen Delivery Method Room Air [facility] <Gonzalez Monroy PALOMO - Last Filed: 01/04/24 20:16> [facility] Lab Data Labs: Laboratory Results - last 24 hr 01/04/24 01/04/24 18:30 19:40 WBC 4.3 L RBC 3.98 L Hgb 10.4 L Hct 33.2 L MCV 83.4 MCH 26.1 L MCHC 31.3 L RDW Std Deviation 46.4 H RDW Coeff of Hi 15.2 H Plt Count 186 MPV 10.6 Immature Gran % (Auto) 0.200 Neut % (Auto) 81.1 H Lymph % (Auto) 7.5 L [place] % (Auto) 10.3 H Eos % (Auto) 0.2 Baso % (Auto) 0.7 Absolute Neuts (auto) 3.5 Absolute Lymphs (auto) 0.32 L Nucleated RBC % 0 Differential Comment SEE COMMENT Platelet Estimate ADEQUATE RBC Morphology N CHROM Anisocytosis RARE ESR 5 Sodium 132 L Potassium 3.5 Chloride 98 Carbon Dioxide 29.0 Anion Gap 5 BUN 10 Creatinine 0.89 Estim Creat Clear Calc 61.80 Est GFR (MDRD) Af Amer 87 Est GFR (MDRD) Non-Af 72 BUN/Creatinine Ratio 11.2 Glucose 79 Calcium 8.4 L Total Bilirubin 1.20 H AST 27 ALT 23 Alkaline Phosphatase 76 Total Protein 6.9 Albumin 3.6 Globulin 3.3 Albumin/Globulin Ratio 1.1 TSH 0.28 L Urine Color Yellow Urine Clarity Clear Urine pH 6.0 Ur Specific [place] 1.015 Urine Protein Negative Urine Glucose (UA) Normal Urine Ketones 15 H Urine Occult Blood 10 H Urine Nitrite Negative Urine Bilirubin Negative Urine Urobilinogen Normal Ur Leukocyte Esterase Negative Urine RBC 0 SEEN Urine WBC 0 SEEN Ur Squamous Epith Cells 5-10 SEEN Urine Bacteria 2+ Urine Mucus 0 SEEN Radiography Diagnostic Testing: Clinical Impression(s) from Imaging Studies Brain CT 01/04/24 18:43 IMPRESSION: Negative head/brain CT without intravenous contrast. Electronically Signed: Cornell Hess MD at 19:33 EDT , Treatment and Re-Evaluation :: Differential diagnosis includes however is not limited to: Stress response, electrolyte abnormality, brain mass, anxiety, depression, multiple sclerosis patient appears to be in no obvious respiratory distress vital signs are stable. Patient appears nontoxic. Presenting to the emergency department with complaints of bodyaches, joint pain as well as forgetfulness. Patient will re ceive basic laboratory values including inflammatory marker, TSH. Patient received a anti-inflammatory IV as well as some IV fluids. CT scan of the brain will be completed. All radiologic examinations were read, reviewed by the emergency department attending. From these reads, a plan of care will be put in place. Patient CT scan of the brain shows negative head/brain CT scan. Patient laborat ory values showed a slight anemia with a hemoglobin of 10.4, patient has been around this number before. Slight leukopenia, patient's sodium was 132 slightly low. Patient's TSH was 0.28, this is slightly low, I did speak with the patient that she needs to change her dosing on her levothyroxine. Patient's urinalysis was negative for any infection. There was bacteria however there was squamous c ells with no white blood cells no leukocytes, no nitrates. At this time, there is no evidence of any ACS, NC, acute intracranial process. Patient will need to follow-up outpatient. She will speak to her doctor regarding her memory issues as well as her thyroid. She was given strict return precaution. Patient stable for discharge. <Dr. Emmett Houston, DO - Last Filed: 01/04/24 20:33> [facility] Narrative Medical decision making narrative: I have personally performed a face to face assessment of the patient and have reviewed the MICHAEL Note. I performed a substantive portion of the visit including all aspects of the following. My arvizu findings include: History: Patient presents with fuzzy feeling in her head. Patient states she has been forgetful over the last 2 weeks. Patient also states she has had some changes in her vision where if she looks at somebody's face she cannot see the face but she can see the outline of the person. Patient states this has been constant for the past 2 weeks. Patient states nothing makes it better and nothing makes it worse. Patient denies any fevers or chills. Exam: Vital signs are stable except for slightly elevated blood pressure 136/90. Patient is afebrile. Patient is in no acute distress. Cranial nerves II through XII are intact. Strength is 5 out of 5 bilateral in the upper and lower extremities. There are no sensory deficits noted. Oral mucosa is pink and moist. Neck is supple. Trachea is midline. There is no JVD. Heart was regular rate and rhythm. Lungs are clear and equal bilaterally. Abdomen is soft. Bowel sounds are normal. There is no tenderness. Medical Decision Making: Differential diagnosis includes infection, hypothyroidism, stroke, intracranial bleeding, electrolyte abnormality, fibromyalgia, and multiple sclerosis. CT scan of the brain will be obtained to assess for intracranial bleeding. CBC will be obtained to assess for leukocytosis and anemia. Comprehensive metabolic profile will be obtained to assess for hepatic function, renal function, and electrolyte abnormality. TSH will be obtained to assess for hypothyroidism and hyperthyroidism. Urinalysis will be obtained to assess for urinary tract infection and hematuria. Sed rate will be obtained to assess for acute inflammatory marker. Patient was given IV fluids and Toradol. CT scan of the brain was obtained. There is no acute intracranial abnormality. This was interpreted by the radiologist and was also independently reviewed by myself. CBC was reviewed. White blood cell count was slightly low at 4.3. Hemoglobin was slightly low at 10.4 and hematocrit was 33.2. Platelets were normal. Comprehensive metabolic profile was reviewed. Total bilirubin was slightly elevated at 1.2. The remainder was within normal limits. Sed rate was reviewed and was normal at 5. TSH was reviewed and was slightly low at 0.28. Urinalysis was reviewed. There is no evidence of urinary tract infection or hematuria. Patient was advised of her findings. Patient was instructed to follow-up with her primary care physician for further evaluation. Patient was instructed to return if worse in any way. Patient understood and was agreeable with the plan. All questions were answered. Lab Data Labs: Laboratory Results - last 24 hr 01/04/24 01/04/24 18:30 19:40 WBC 4.3 L RBC 3.98 L Hgb 10.4 L Hct 33.2 L MCV 83.4 MCH 26.1 L MCHC 31.3 L RDW Std Deviation 46.4 H RDW Coeff of Hi 15.2 H Plt Count 186 MPV 10.6 Immature Gran % (Auto) 0.200 Neut % (Auto) 81.1 H Lymph % (Auto) 7.5 L [place] % (Auto) 10.3 H Eos % (Auto) 0.2 Baso % (Auto) 0.7 Absolute Neuts (auto) 3.5 Absolute Lymphs (auto) 0.32 L Nucleated RBC % 0 Differential Comment SEE COMMENT Platelet Estimate ADEQUATE RBC Morphology N CHROM Anisocytosis RARE ESR 5 Sodium 132 L Potassium 3.5 Chloride 98 Carbon Dioxide 29.0 Anion Gap 5 BUN 10 Creatinine 0.89 Estim Creat Clear Calc 61.80 Est GFR (MDRD) Af Amer 87 Est GFR (MDRD) Non-Af 72 BUN/Creatinine Ratio 11.2 Glucose 79 Calcium 8.4 L Total Bilirubin 1.20 H AST 27 ALT 23 Alkaline Phosphatase 76 Total Protein 6.9 Albumin 3.6 Globulin 3.3 Albumin/Globulin Ratio 1.1 TSH 0.28 L Urine Color Yellow Urine Clarity Clear Urine pH 6.0 Ur Specific [place] 1.015 Urine Protein Negative Urine Glucose (UA) Normal Urine Ketones 15 H Urine Occult Blood 10 H Urine Nitrite Negative Urine Bilirubin Negative Urine Urobilinogen Normal Ur Leukocyte Esterase Negative Urine RBC 0 SEEN Urine WBC 0 SEEN Ur Squamous Epith Cells 5-10 SEEN Urine Bacteria 2+ Urine Mucus 0 SEEN Radiography Diagnostic Testing: Clinical Impression(s) from Imaging Studies Brain CT 01/04/24 18:43 IMPRESSION: Negative head/brain CT without intravenous contrast. Electronically Signed: Cornell Hess MD at 19:33 EDT Reading Location ID and State: [facility] / [place] , Service support , Discharge Plan Triage Chief Complaint: Confusion Other Complaint: Abd Pain ED Midlevel Provider: Gonzalez Monroy ED Provider: Emmett Houston Dx/Rx/DC Orders Clinical Impression: Episodic memory loss, Joint pain, Fibromyalgia Instructions: ED Confusion, ED Myalgias, ED Fibromyalgia Prescriptions: No Action citalopram [Celexa] 40 MG tablet 60 mg PO DAILY tramadol 50 MG tablet 100 mg PO BID Primary Care Provider: Hugo Rodriguez Referrals: Hugo Rodriguez MD [Primary Care Provider] - Activity Restrictions/Additional Instructions: You need to follow-up with your PCP regarding your memory loss issues. Also that you are TSH level is low, we need to decrease your levothyroxine dose. Print Language: Luxembourgish Disposition Disposition: Home, Self Care
[2024-01-04 18:59] LABS: Absolute Lymphocyte Count 0.32 X10^3/uL (0.83-4.51); Absolute Neutrophil Count 3.5 X10^3/uL (2.0-7.7); Basophil# 0.03 X10^3/uL; Basophil% 0.7 % (0-1); Eosinophil# 0.01 X10^3/uL; Eosinophils% 0.2 % (0-5); Hematocrit 33.2 % (37-47); Hemoglobin 10.4 g/dL (12.0-15.0); Lymphocyte # 0.32 X10^3/ul (0.83-4.51); Lymphocyte % 7.5 % (19-41); Mean Corp Hgb Conc 31.3 g/dL (32-36); Mean Corpuscular Hgb 26.1 pg (27.0-32.0); Mean Corpuscular Volume 83.4 fL (81-99); Mean Platelet Vol. 10.6 fl (6.2-12.0); Monocyte# 0.44 X10^3/uL; Monocyte% 10.3 % (0-10); NRBC Flagged by Analyzer 0 % (0-5); Neutrophil # 3.46 X10^3/uL (2.7-7.7); Neutrophil % 81.1 % (47-70); POSITIVE DIFFERENTIAL YES; Platelet Count 186 K/mm3 (150-450); RBC Distribution Width CV 15.2 % (11.6-14.6); RBC Distribution Width SD 46.4 fl (35.1-43.9); Red Blood Count 3.98 M/mm3 (4.2-5.4); White Blood Count 4.3 K/mm3 (4.4-11.0)
[2024-01-04 19:00] LABS: Differential Indicated SCAN CRITERIA MET
[2024-01-04] MEDS: 0.9% Normal Saline (1000mL) 1,000 ML 999 ML IV (19:00)
[2024-01-04] MEDS: Ketorolac 15 MG/ML Vial IV (19:00)
[2024-01-04 19:16] LABS: Erythrocyte Sedimentation Rate 5 mm/hr (0-30)
[2024-01-04 19:22] LABS: ALB/GLOB Ratio 1.1 RATIO (0.9-2.4); AST(SGOT) 27 U/L (15-37); Alanine Aminotransfer ALT/SGPT 23 U/L (13-56); Albumin, Serum 3.6 g/dL (3.2-5.0); Alkaline Phosphatase 76 U/L (45-117); Anion Gap 5 (5-15); BUN 10 mg/dL (7-18); BUN/Creat Ratio 11.2 RATIO (10-20); Calcium,Total 8.4 mg/dL (8.5-10.1); Chloride 98 mmol/L (98-107); Creatinine, Serum 0.89 mg/dL (0.55-1.02); EST Glomerular Filtration Rate 72 mL/min (>60); Est Glom Filt Rate - Afr Amer 87 mL/min (>60); Globulin 3.3 g/dL (2.2-4.2); Glucose 79 mg/dL (74-106); Potassium 3.5 mmol/L (3.5-5.1); Protein, Total 6.9 g/dL (6.4-8.2); Sodium Level 132 mmol/L (136-145); Thyroid Stim Hormone (TSH) 0.28 uIU/mL (0.358-3.74)
[2024-01-04 19:28] LABS: Anisocytosis RARE; Platelet Estimate ADEQUATE (ADEQ); Red Cell Morphology N CHROM NORMAL (NORM C&C)
[2024-01-04 19:30] VITALS: BP 107/71; PULSE 80; RESP 14; O2SAT 98
[2024-01-04 19:44] LABS: Mucous, Urine 0 SEEN /hpf (<or=2+); Red Blood Cells-Urine 0 SEEN /hpf (0-5); White Blood Cells 0 SEEN /hpf (0-5)
[2024-01-04 19:48] LABS: Color, Urine Yellow (Yellow); Glucose, Dipstick Normal (Normal); Ketone-Dipstick 15 mg/dl (Negative); Leukocyte Esterase-Dipstick Negative /ul (Negative); Nitrite-Dipstick Negative (Negative); Occult Blood-Urine 10 /ul (Negative); Protein-Dipstick Negative (Negative); Specific Gravity, Urine 1.015 (1.002-1.030); Urine Bilirubin Dipstick Negative (Negative); Urine Clarity Clear (Clear); Urine Urobilinogen Normal (Normal)
[2024-01-04 20:08] LABS: Bacteria 2+ /hpf (None Seen); Squamous Epithelial Cells - UA 5-10 SEEN /hpf (5-10)
[2024-01-04 20:32] VITALS: BP 97/61; PULSE 78; RESP 11; TEMP 36.6; O2SAT 99
== END 2024-01-04 20:35 | disposition home or self-care (01) ==
PROVIDERS: Nurse Practitioner; Emergency Provider Emergency Medicine; PCP Family Medicine; Visit Provider Emergency Medicine
DX: R41.0 Disorientation, unspecified (principal); M79.7 Fibromyalgia
CPT/HCPCS: 70450; 80053; 81001; 84443; 85025; 85652; 96361; 96374; 99284; J7030; A4216

== ENCOUNTER → 2024-04-28 | Outpatient (CLI) | payer OTHER, SELFPAY ==
[2024-04-28 15:26] LABS: Hemoglobin 10.9 g/dL (12.0-15.0); Mean Corp Hgb Conc 31.1 g/dL (32-36); Mean Corpuscular Hgb 26.8 pg (27.0-32.0); Mean Platelet Vol. 11.5 fl (6.2-12.0); Platelet Count 250 K/mm3 (150-450); RBC Distribution Width CV 14.9 % (11.6-14.6); RBC Distribution Width SD 46.5 fl (35.1-43.9); Red Blood Count 4.07 M/mm3 (4.2-5.4); White Blood Count 4.6 K/mm3 (4.4-11.0)
[2024-04-28 15:42] LABS: Erythrocyte Sedimentation Rate 9 mm/hr (0-30)
[2024-04-28 16:02] LABS: ALB/GLOB Ratio 1.1 RATIO (0.9-2.4); AST(SGOT) 57 U/L (15-37); Alanine Aminotransfer ALT/SGPT 45 U/L (13-56); Albumin, Serum 3.8 g/dL (3.2-5.0); Alkaline Phosphatase 68 U/L (45-117); Anion Gap 3 (5-15); BUN 10 mg/dL (7-18); BUN/Creat Ratio 12.5 RATIO (10-20); CRP < 2.90 mg/L (0.0-3.0); Calcium,Total 8.8 mg/dL (8.5-10.1); Chloride 104 mmol/L (98-107); Cholesterol 291 mg/dL (200); EST Glomerular Filtration Rate 81 mL/min (>60); Est Glom Filt Rate - Afr Amer 98 mL/min (>60); Ferritin 7 ng/mL (8-252); Free T3 1.4 pg/mL (2.18-3.98); Globulin 3.6 g/dL (2.2-4.2); Glucose 70 mg/dL (74-106); High Density Lipoprotein 81 mg/dL; Iron 34 ug/dL (50-170); Potassium 3.9 mmol/L (3.5-5.1); Protein, Total 7.4 g/dL (6.4-8.2); Sodium Level 136 mmol/L (136-145); T4 Free Direct 0.86 ng/dL (0.76-1.46); Triglycerides 78 mg/dL; Very Low Density Lipoprotein 16 mg/dL (5-40)
== END | disposition home or self-care (01) ==
PROVIDERS: PCP Family Medicine; Referring Provider Family Medicine; Visit Provider Family Medicine
DX: D64.9 Anemia, unspecified (principal); E07.89 Other specified disorders of thyroid; E78.5 Hyperlipidemia, unspecified; M79.7 Fibromyalgia
CPT/HCPCS: 36415; 80053; 80061; 82728; 83540; 84439; 84443; 84481; 85027; 85652; 86140

== ENCOUNTER 2024-05-01 08:30 | Emergency (ER) | payer OTHER, SELFPAY ==
[2024-05-01 08:30] VITALS: BP 105/81; PULSE 77; RESP 14; TEMP 36.4; O2SAT 100; BMI 23.5
--- NOTE | 2024-05-01 09:13 | CT_ITS ---
EXAM: CT ABDOMEN AND PELVIS WITH INTRAVENOUS CONTRAST CLINICAL INDICATION: upper abdominal pain TECHNIQUE: Helically acquired images were obtained of the abdomen and pelvis with intravenous contrast. This CT exam was performed using one or more of the following dose reduction techniques: automated exposure control, adjustment of the mA and/or kV according to patient size, and/or use of iterative reconstruction technique. CONTRAST: IV 100mL [id number] COMPARISON: CT Abdomen Pelvis dated 10/03/2018 FINDINGS: LOWER THORAX: Normal. Lung bases are clear. No cardiomegaly. No pericardial effusion. ABDOMEN: LIVER: Normal. Homogeneous. No focal mass. GALLBLADDER AND BILE DUCTS: Interval cholecystectomy. Common bile duct measures 13 mm in maximum diameter without evidence of an obstructing stone or mass. PANCREAS: Pancreatic duct is dilated measuring 8 mm in maximum diameter. No evidence of acute pancreatitis or underlying pancreatic mass. SPLEEN: Normal. Normal size without focal cystic or solid mass. ADRENALS: Normal. No nodules. KIDNEYS AND URETERS: Normal. Normal renal size and position. No hydronephrosis. STOMACH AND BOWEL: Air-fluid levels noted within the distended small bowel loops suggestive of ileus. Low-grade small bowel obstruction not entirely excluded. PELVIS: APPENDIX: Surgical clips at the base of the cecum consistent with appendectomy. BLADDER: Normal. REPRODUCTIVE: Uterus is retroflexed. Vaginal tampon in place. ABDOMEN and PELVIS: INTRAPERITONEAL SPACE: Normal. No ascites or other fluid collection. No free air. BONES/JOINTS: No suspicious lytic or blastic abnormality. SOFT TISSUES: Normal. No discrete abdominal or pelvic wall hernia. VASCULATURE: Normal. Abdominal aorta is non-dilated. LYMPH NODES: Normal. No enlarged lymph nodes. CT/Abdomen/Pelvis W IV Cont ONLY IMPRESSION: 1. Interval dilatation of the biliary and pancreatic ducts status post cholecystectomy with no evidence of an obstructing stone or mass. Follow-up MRCP recommended if there is clinical concern for cholestasis. 2. Mild small bowel ileus versus low-grade small bowel obstruction. Electronically Signed: Quincy Eller MD at 10:12 EDT ,
[2024-05-01 09:21] LABS: Absolute Lymphocyte Count 1.47 X10^3/uL (0.83-4.51); Absolute Neutrophil Count 2.7 X10^3/uL (2.0-7.7); Basophil# 0.04 X10^3/uL; Basophil% 0.9 % (0-1); Eosinophil# 0.07 X10^3/uL; Eosinophils% 1.5 % (0-5); Hematocrit 38.5 % (37-47); Hemoglobin 12.1 g/dL (12.0-15.0); Lymphocyte # 1.47 X10^3/ul (0.83-4.51); Lymphocyte % 31.7 % (19-41); Mean Corp Hgb Conc 31.4 g/dL (32-36); Mean Corpuscular Hgb 27.3 pg (27.0-32.0); Mean Corpuscular Volume 86.7 fL (81-99); Mean Platelet Vol. 10.6 fl (6.2-12.0); Monocyte# 0.38 X10^3/uL; Monocyte% 8.2 % (0-10); NRBC Flagged by Analyzer 0 % (0-5); Neutrophil # 2.66 X10^3/uL (2.7-7.7); Neutrophil % 57.5 % (47-70); Platelet Count 283 K/mm3 (150-450); RBC Distribution Width CV 15.1 % (11.6-14.6); RBC Distribution Width SD 47.8 fl (35.1-43.9); Red Blood Count 4.44 M/mm3 (4.2-5.4); White Blood Count 4.6 K/mm3 (4.4-11.0)
[2024-05-01] MEDS: HYDROmorphone 1 MG/ML Syringe 0.5 MG IV (09:29)
[2024-05-01] MEDS: Ondansetron 4 MG/2 ML Vial IV (09:29)
[2024-05-01 09:32] LABS: Internal QC Validated? YES +Cl - CLEAR BKGD; Pregnancy, Serum, hCG Quali. NEGATIVE Negative
[2024-05-01 09:56] LABS: AST(SGOT) 41 U/L (15-37); Alanine Aminotransfer ALT/SGPT 42 U/L (13-56); Albumin, Serum 4.1 g/dL (3.2-5.0); Alkaline Phosphatase 76 U/L (45-117); Anion Gap 5 (5-15); BUN 15 mg/dL (7-18); BUN/Creat Ratio 15.9 RATIO (10-20); Bilirubin, Direct 0.23 mg/dL (0.00-0.30); Calcium,Total 9.2 mg/dL (8.5-10.1); Chloride 103 mmol/L (98-107); Creatinine, Serum 0.94 mg/dL (0.55-1.02); EST Glomerular Filtration Rate 67 mL/min (>60); Est Glom Filt Rate - Afr Amer 81 mL/min (>60); Estimated Creatinine Clearance 57.89 ml/min; Glucose 78 mg/dL (74-106); Lipase 77 U/L (13-75); Potassium 3.7 mmol/L (3.5-5.1); Protein, Total 8.1 g/dL (6.4-8.2); Sodium Level 137 mmol/L (136-145)
[2024-05-01 10:29] LABS: Bacteria 0 SEEN /hpf (None Seen); Mucous, Urine 0 SEEN /hpf (<or=2+); Red Blood Cells-Urine 0 SEEN /hpf (0-5); White Blood Cells 0 SEEN /hpf (0-5)
[2024-05-01 10:35] LABS: Color, Urine Yellow (Yellow); Glucose, Dipstick Normal (Normal); Ketone-Dipstick Negative (Negative); Leukocyte Esterase-Dipstick Negative /ul (Negative); Nitrite-Dipstick Negative (Negative); Occult Blood-Urine 10 /ul (Negative); Protein-Dipstick Negative (Negative); Specific Gravity, Urine 1.005 (1.002-1.030); Urine Bilirubin Dipstick Negative (Negative); Urine Clarity Clear (Clear); Urine Urobilinogen Normal (Normal); Urine pH 6.5 (5.0 - 8.0)
[2024-05-01 10:43] LABS: Squamous Epithelial Cells - UA 0-5 SEEN /hpf (5-10)
[2024-05-01 10:52] VITALS: BP 111/78; PULSE 72; RESP 16; O2SAT 98
[2024-05-01] MEDS: Ketorolac 30 MG/ML Syringe IV (11:56)
[2024-05-01 12:10] VITALS: BP 100/73; PULSE 80; RESP 16
[2024-05-01 12:34] VITALS: BP 100/73; PULSE 80; RESP 16; TEMP 36.6; O2SAT 98
--- NOTE | 2024-05-01 13:47 | EDS_ITS ---
HPI HPI - GI History of Present Illness Chief Complaint: Abd Pain Informant: patient Narrative Narrative: 49-year-old female presenting to the emergency room with several day history of pain in right upper quadrant seen towards the right flank. Patient not experiencing fever. No vomiting no diarrhea no urinary symptoms. She has had prior cholecystectomy. States she has had a history of pancreatitis before. [facility] Medical History Cholecystectomy planned Pancreatitis Crohn disease Fibromyalgia Home Medications ?Medication ?Instructions ?Recorded ?Last Taken ?Type citalopram 40 mg tablet (Celexa) 60 mg PO DAILY 03/27/14 Unknown History tramadol 50 mg tablet 100 mg PO Q6H 03/27/14 Unknown History escitalopram oxalate 20 mg tablet 20 mg PO DAILY 05/01/24 Unknown History ferrous sulfate 325 mg (65 mg 325 mg PO DAILY 05/01/24 Unknown History iron) tablet (FeroSul) gabapentin 400 mg capsule 400 mg PO Q12H 05/01/24 Unknown History levothyroxine 112 mcg tablet 112 mcg PO DAILY 05/01/24 Unknown History rosuvastatin 5 mg tablet 5 mg PO DAILY 05/01/24 Unknown History Allergy/AdvReac Type Severity Reaction Status Date / Time No Known Allergies Allergy Verified 05/01/24 08:31 Surgical History History of appendectomy Social History Smoking Status: Never smoker ROS ROS ED Constitutional Constitutional ED: Denies chills or weight loss Eyes Eyes: Denies change in vision or diplopia ENT ENT ED: Denies ear pain, rhinorrhea or sore throat Cardiovascular Cardiovascular: Denies chest pain, orthopnea, palpitations or racing heartbeat Respiratory/Chest Respiratory/Chest: Denies cough, dyspnea or orthopnea Gastrointestinal Gastrointestinal: Reports abdominal pain; Denies diarrhea, nausea or vomiting Genitourinary Genitourinary ED: Denies dysuria, hematuria or urinary frequency Musculoskeletal Musculoskeletal: Denies arthralgias or myalgias Integumentary Denies abscess or rash Neurologic Neurologic: Denies headache(s) or weakness Psychiatric Psychiatric: Denies anxiety, depression, suicidal ideation or suicidal thoughts Endocrine Endocrinology: Denies polydipsia, polyphagia or polyuria Allergic/Immunologic Allergic/Immunologic ED: Denies mouth swelling, tongue swelling or urticaria EXAM Physical Exam Const Vital Signs: 05/01/24 08:30 05/01/24 10:52 05/01/24 12:10 Temperature 97.5 F L Temperature Source Temporal Pulse Rate 77 72 80 Respiratory Rate 14 16 16 Blood Pressure 105/81 H 111/78 100/73 Blood Pressure Mean 89 89 82 Pulse Ox 100 98 Oxygen Delivery Method Room Air Room Air 05/01/24 12:34 Temperature 97.8 F Temperature Source Pulse Rate 80 Respiratory Rate 16 Blood Pressure 100/73 Blood Pressure Mean 82 Pulse Ox 98 Oxygen Delivery Method Positive well nourished and well developed General Appearance ED: well developed HEENT Reports normocephalic, head/scalp atraumatic and moist mucous membranes Eyes PERRL and EOMs intact bilaterally Neck no lymphadenopathy, supple and no JVD Resp normal respiratory effort and clear to auscultation bilaterally Cardio regular rate, regular rhythm and no murmurs GI GI Narrative: Mild tenderness to palpation in the right upper quadrant without guarding or rebound. The abdomen is soft. Normal active bowel sounds. No masses are felt. I do not see any ecchymosis on the abdomen or the back. Palpation: soft Back/Spine no CVA tenderness and normal ROM Extremity normal to inspection General Extremety ED: Negative for edema General Extremity: Negative for edema Neuro oriented x3 and CN's II-XII intact bilaterally Sensorium / Orientation: alert Motor Exam: strength 5/5 throughout Psych mental status grossly normal Mood & Affect: Negative for depressed or tearful Skin no rashes or lesions noted and no wounds MDM MDM MDM Narrative Medical decision making narrative: Differential diagnosis would include choledocholithiasis hepatitis pancreatitis colitis pyelonephritis UTI pneumonia diaphragmatic irritation small bowel obstr uction White count 4.6 hemoglobin 12.1 platelet count of 283. BMP is within normal limits liver enzymes show an AST of 41 total bilirubin 1.4 direct bili 0.23 lipase 77 test is negative urinalysis is negative CT of the abdomen pelvis demonstrates mild small bowel ileus versus low-grade small bowel obstruction. There is biliary duct and pancreatic duct dilatation which the patient states she knows about. Please see the radiologist read for full details. I discussed the above results with the patient. We talked about an observational stay for possible ileus so I do not think that bowel obstruction fits the clinical picture. It has been several days no vomiting. Patient states that she would prefer to go home and will return if worsening. She is going to adhere to a liquid diet. Follow-up if needed return if worsening History & Record Review Discussion w/independent historian: Patient Lab Data Attestation: I reviewed the patient's lab results. Labs: Laboratory Results - last 24 hr 05/01/24 05/01/24 08:58 10:19 WBC 4.6 RBC 4.44 Hgb 12.1 Hct 38.5 MCV 86.7 MCH 27.3 MCHC 31.4 L RDW Std Deviation 47.8 H RDW Coeff of Hi 15.1 H Plt Count 283 MPV 10.6 Immature Gran % (Auto) 0.200 Neut % (Auto) 57.5 Lymph % (Auto) 31.7 [place] % (Auto) 8.2 Eos % (Auto) 1.5 Baso % (Auto) 0.9 Absolute Neuts (auto) 2.7 Absolute Lymphs (auto) 1.47 Nucleated RBC % 0 Sodium 137 Potassium 3.7 Chloride 103 Carbon Dioxide 29.0 Anion Gap 5 BUN 15 Creatinine 0.94 Estim Creat Clear Calc 57.89 Est GFR (MDRD) Af Amer 81 Est GFR (MDRD) Non-Af 67 BUN/Creatinine Ratio 15.9 Glucose 78 Calcium 9.2 Total Bilirubin 1.40 H Direct Bilirubin 0.23 AST 41 H ALT 42 Alkaline Phosphatase 76 Total Protein 8.1 Albumin 4.1 Globulin 4.0 Lipase 77 H Serum , Qual NEGATIVE Urine Color Yellow Urine Clarity Clear Urine pH 6.5 Ur Specific [place] 1.005 Urine Protein Negative Urine Glucose (UA) Normal Urine Ketones Negative Urine Occult Blood 10 H Urine Nitrite Negative Urine Bilirubin Negative Urine Urobilinogen Normal Ur Leukocyte Esterase Negative Urine RBC 0 SEEN Urine WBC 0 SEEN Ur Squamous Epith Cells 0-5 SEEN Urine Bacteria 0 SEEN Urine Mucus 0 SEEN Radiography Diagnostic Testing: Clinical Impression(s) from Imaging Studies Abdomen/Pelvis CT 05/01/24 09:13 IMPRESSION: 1. Interval dilatation of the biliary and pancreatic ducts status post cholecystectomy with no evidence of an obstructing stone or mass. Follow-up MRCP recommended if there is clinical concern for cholestasis. 2. Mild small bowel ileus versus low-grade small bowel obstruction. Electronically Signed: Quincy Eller MD at 10:12 EDT , Discharge Plan Triage Chief Complaint: Abd Pain ED Provider: Raul Bishop Dx/Rx/DC Orders Clinical Impression: Abdominal pain, Ileus Instructions: Ileus Prescriptions: No Action citalopram [Celexa] 40 MG tablet 60 mg PO DAILY tramadol 50 MG tablet 100 mg PO Q6H gabapentin 400 mg capsule 400 mg PO Q12H levothyroxine 112 mcg tablet 112 mcg PO DAILY escitalopram oxalate 20 mg tablet 20 mg PO DAILY ferrous sulfate [FeroSul] 325 mg (65 mg iron) tablet 325 mg PO DAILY rosuvastatin 5 mg tablet 5 mg PO DAILY Primary Care Provider: Hugo Rodriguez Referrals: Hugo Rodriguez MD [Primary Care Provider] - As Needed Activity Restrictions/Additional Instructions: As we discussed I would recommend a liquid diet and advancing slowly. If you are worsening or have concerns he will be the weekend so please return to emergency. Print Language: Marshallese Disposition Disposition: Home, Self Care Discharge Date/Time: 05/01/24 12:41
== END 2024-05-01 12:41 | disposition home or self-care (01) ==
PROVIDERS: Emergency Provider Emergency Medicine; PCP Family Medicine; Visit Provider Emergency Medicine
DX: K56.7 Ileus, unspecified (principal)
CPT/HCPCS: 74177; 80048; 80076; 81001; 83690; 84703; 85025; 96374; 96375; 99283; Q9967; A4216; J2405

== ENCOUNTER → 2024-05-12 | Outpatient (CLI) | payer OTHER, SELFPAY ==
[2024-05-12 08:44] LABS: Bacteria 0 SEEN /hpf (None Seen); Mucous, Urine 0 SEEN /hpf (<or=2+); Red Blood Cells-Urine 0 SEEN /hpf (0-5); White Blood Cells 0 SEEN /hpf (0-5)
--- NOTE | 2024-05-12 08:46 | RAD_ITS ---
STUDY: X-RAY - ABDOMEN/PELVIS REASON FOR EXAM: Female, 49 years old. abdominal pain TECHNIQUE: Single AP view of the abdomen / pelvis. COMPARISON: None. FINDINGS: Status post cholecystectomy. There is an unremarkable bowel gas pattern. The visualized liver, spleen and kidneys are grossly normal in size and morphology. Normal soft tissue structures. Mild levoscoliosis of the lumbar spine. RAD/Abd Inc Decub and/or Erect IMPRESSION: Normal x-ray examination of the abdomen and pelvis. Electronically Signed: Ozzie Saez MD at 8:24 EST ,
[2024-05-12 09:54] LABS: Color, Urine Straw (Yellow); Glucose, Dipstick Normal (Normal); Ketone-Dipstick Negative (Negative); Leukocyte Esterase-Dipstick Negative /ul (Negative); Nitrite-Dipstick Negative (Negative); Occult Blood-Urine Negative /ul (Negative); Protein-Dipstick Negative (Negative); Specific Gravity, Urine 1.005 (1.002-1.030); Urine Bilirubin Dipstick Negative (Negative); Urine Clarity Sl. Cloudy (Clear); Urine Urobilinogen Normal (Normal)
[2024-05-12 10:08] LABS: Absolute Lymphocyte Count 1.16 X10^3/uL (0.83-4.51); Absolute Neutrophil Count 2.1 X10^3/uL (2.0-7.7); Basophil# 0.03 X10^3/uL; Basophil% 0.8 % (0-1); Eosinophil# 0.05 X10^3/uL; Eosinophils% 1.3 % (0-5); Hematocrit 38.3 % (37-47); Lymphocyte # 1.16 X10^3/ul (0.83-4.51); Lymphocyte % 31.1 % (19-41); Mean Corp Hgb Conc 31.3 g/dL (32-36); Mean Corpuscular Hgb 27.5 pg (27.0-32.0); Mean Corpuscular Volume 87.6 fL (81-99); Mean Platelet Vol. 11.6 fl (6.2-12.0); Monocyte# 0.39 X10^3/uL; Monocyte% 10.5 % (0-10); NRBC Flagged by Analyzer 0 % (0-5); Neutrophil # 2.09 X10^3/uL (2.7-7.7); Platelet Count 218 K/mm3 (150-450); RBC Distribution Width CV 16.1 % (11.6-14.6); RBC Distribution Width SD 51.7 fl (35.1-43.9); Red Blood Count 4.37 M/mm3 (4.2-5.4); White Blood Count 3.7 K/mm3 (4.4-11.0)
[2024-05-12 10:10] LABS: Squamous Epithelial Cells - UA 0-5 SEEN /hpf (5-10)
[2024-05-12 11:00] LABS: ALB/GLOB Ratio 1.1 RATIO (0.9-2.4); AST(SGOT) 22 U/L (15-37); Alanine Aminotransfer ALT/SGPT 23 U/L (13-56); Albumin, Serum 3.9 g/dL (3.2-5.0); Alkaline Phosphatase 64 U/L (45-117); Amylase 117 U/L (25-115); Anion Gap 8 (5-15); BUN 8 mg/dL (7-18); CRP < 2.90 mg/L (0.0-3.0); Calcium,Total 8.8 mg/dL (8.5-10.1); Chloride 106 mmol/L (98-107); EST Glomerular Filtration Rate 81 mL/min (>60); Est Glom Filt Rate - Afr Amer 98 mL/min (>60); Globulin 3.5 g/dL (2.2-4.2); Glucose 71 mg/dL (74-106); Lipase 82 U/L (13-75); Potassium 3.9 mmol/L (3.5-5.1); Protein, Total 7.4 g/dL (6.4-8.2); Sodium Level 141 mmol/L (136-145)
== END | disposition home or self-care (01) ==
PROVIDERS: PCP Family Medicine; Referring Provider Family Medicine; Visit Provider Family Medicine
DX: R10.9 Unspecified abdominal pain (principal)
CPT/HCPCS: 36415; 74019; 80053; 81001; 82150; 83690; 84443; 85025; 86140

== ENCOUNTER 2024-05-13 11:08 | Emergency (ER) | payer OTHER, SELFPAY ==
[2024-05-13 11:09] VITALS: BP 111/83; PULSE 78; RESP 16; TEMP 36.1; O2SAT 98; BMI 23.3
[2024-05-13] MEDS: 0.9% Normal Saline (1000mL) 1,000 ML 999 ML IV ×2 (11:28→15:39)
[2024-05-13] MEDS: Ondansetron 4 MG/2 ML Vial IV (11:29)
[2024-05-13] MEDS: Morphine 4 MG/ML Syringe IV (11:29)
--- NOTE | 2024-05-13 11:32 | ED.VIS.GI ---
HPI HPI - GI History of Present Illness Chief Complaint: Abd Pain Narrative Narrative: 49-year-old female who denies significant past medical history presents with epigastric pain with nausea and vomiting that she has had for the last 2 weeks. She states she was seen in the emergency department and diagnosed with an ileus, and elected to be treated at home. She was discharged and followed up with her primary care provider who performed x-rays and laboratory work. She received a phone call today stating that she had pancreatitis and that she needed to come to the emergency department for treatment. She complains of epigastric pain without exacerbating or alleviating factors. No fevers or chills. Past surgical history does include remote cholecystectomy. Last menstrual period 1 week ago. [facility] Medical History (Updated 05/13/24 @ 16:03 by Tony Cardenas MD) Anxiety Depression Hypothyroidism Non-smoker Cholecystectomy planned Pancreatitis Crohn disease Fibromyalgia Home Medications ?Medication ?Instructions ?Recorded ?Last Taken ?Type citalopram 40 mg tablet (Celexa) 60 mg PO DAILY 03/27/14 05/13/24 History tramadol 50 mg tablet 50 mg PO Q6H 03/27/14 Unknown History escitalopram oxalate 20 mg tablet 20 mg PO DAILY 05/01/24 Unknown History ferrous sulfate 325 mg (65 mg 325 mg PO DAILY 05/01/24 Unknown History iron) tablet (FeroSul) gabapentin 400 mg capsule 400 mg PO Q12H 05/01/24 Unknown History levothyroxine 112 mcg tablet 112 mcg PO DAILY 05/01/24 Unknown History rosuvastatin 5 mg tablet 5 mg PO DAILY 05/01/24 Unknown History Vicoden See Rx Instructions .Route .COMPLEX 05/13/24 05/13/24 09:08 History 1 tab Allergy/AdvReac Type Severity Reaction Status Date / Time No Known Allergies Allergy Verified 05/01/24 08:31 Surgical History (Updated 05/13/24 @ 14:11 by Randa Goetz) History of cholecystectomy History of appendectomy Social History Smoking Status: Never smoker ROS ROS ED ROS Narrative Constitutional: No fever, no chills. HEENT: No sore throat. No neck pain. No loss of vision. No rhinorrhea. Cardiovascular: No chest pain. No palpitations. No pedal edema. Respiratory: No cough, no shortness of breath. Abdominal: Positive epigastric abdominal pain. Positive nausea and vomiting Genitourinary: No dysuria. No hematuria. EXAM Physical Exam Narrative Exam Narrative: Afebrile. Vital signs noted. Nontoxic-appearing. Cardiovascular examination reveals a regular rate and rhythm. Lungs are clear to auscultation bilaterally. Abdomen is soft with mild epigastric tenderness but no guarding or rebound. Positive bowel sounds. Neurological examination is nonfocal and nonlateralizing, able to transfer from standing to the cot. Moves all extremities. Const Vital Signs: 05/13/24 11:09 05/13/24 13:08 05/13/24 15:00 Temperature 97.0 F L Temperature Source Temporal Pulse Rate 78 72 69 Respiratory Rate 16 15 18 Blood Pressure 111/83 H 99/64 97/65 Blood Pressure Mean 92 75 75 Pulse Ox 98 97 100 Oxygen Delivery Method Room Air Room Air Room Air 05/13/24 15:40 Temperature 98.3 F Temperature Source Pulse Rate 75 Respiratory Rate 17 Blood Pressure 100/64 Blood Pressure Mean 76 Pulse Ox 99 Oxygen Delivery Method MDM MDM MDM Narrative Medical decision making narrative: Differential diagnosis includes but not limited to pancreatitis versus gastritis. I doubt gallstone pancreatitis because she has had a cholecystectomy remotely. She does have history of triglyceride elevation and elevated cholesterol so she may have pancreatitis from triglycerides. She denies alcohol consumption so I doubt alcohol pancreatitis. I did review her outpatient laboratory work and she had slightly elevated lipase of 82. I reviewed her prior ED visit as well. Review of her laboratory work today shows normal white count of 4.9 with hemoglobin 12.2, hematocrit 38.0, platelet count normal at 198. Sodium is normal at 138 with potassium 3.8 and chloride 104. BUN of 8 and creatinine 0.82. Glucose is 83 today. AST is 19 and ALT 22. Repeat lipase is slightly higher at 84. Repeat examination at approximately 1320 shows her resting comfortably and her pain has slightly improved after morphine. Given that she has had ongoing pain and elevated lipase, I will discuss patient with the hospitalist, Dr. Maureen Rae, for at least observation and possible GI consultation. Patient is in stable condition. Repeat examination shows improvement in the patient's epigastric pain, and she declined further narcotic parenteral analgesia. I did discuss patient with Dr. Rae who requested CT of the abdomen pelvis prior to admission. As CT read is currently pending, patient signed out to Dr. Sharon Galan who will check the results of the CT and we discussed patient with Dr. Rae. Disposition is pending but anticipate admission/observation. Patient is in stable condition. History & Record Review Discussion w/independent historian: Patient Additional record(s) reviewed:: Prior ED visit Lab Data Attestation: I reviewed the patient's lab results. Labs: Laboratory Results - last 24 hr 05/13/24 11:25 WBC 4.9 RBC 4.34 Hgb 12.2 Hct 38.0 MCV 87.6 MCH 28.1 MCHC 32.1 RDW Std Deviation 51.6 H RDW Coeff of Hi 16.1 H Plt Count 198 MPV 11.2 Immature Gran % (Auto) 0.400 Neut % (Auto) 66.1 Lymph % (Auto) 25.1 [place] % (Auto) 7.4 Eos % (Auto) 0.4 Baso % (Auto) 0.6 Absolute Neuts (auto) 3.2 Absolute Lymphs (auto) 1.22 Nucleated RBC % 0 Sodium 138 Potassium 3.8 Chloride 104 Carbon Dioxide 29.0 Anion Gap 5 BUN 8 Creatinine 0.82 Estim Creat Clear Calc 66.36 Est GFR (MDRD) Af Amer 96 Est GFR (MDRD) Non-Af 80 BUN/Creatinine Ratio 9.8 L Glucose 83 Calcium 8.9 Total Bilirubin 1.50 H AST 19 ALT 22 Alkaline Phosphatase 63 Total Protein 7.2 Albumin 3.8 Globulin 3.4 Albumin/Globulin Ratio 1.1 Lipase 84 H Serum , Qual NEGATIVE Management Discussion w/another healthcare provider: Hospitalist Discharge Plan Dx/Rx/DC Orders Clinical Impression: Elevated lipase, Nausea and vomiting, Epigastric abdominal pain Disposition Disposition: Acute Care [facility]
[2024-05-13 11:40] LABS: Absolute Lymphocyte Count 1.22 X10^3/uL (0.83-4.51); Absolute Neutrophil Count 3.2 X10^3/uL (2.0-7.7); Basophil# 0.03 X10^3/uL; Basophil% 0.6 % (0-1); Eosinophil# 0.02 X10^3/uL; Eosinophils% 0.4 % (0-5); Hemoglobin 12.2 g/dL (12.0-15.0); Lymphocyte # 1.22 X10^3/ul (0.83-4.51); Lymphocyte % 25.1 % (19-41); Mean Corp Hgb Conc 32.1 g/dL (32-36); Mean Corpuscular Hgb 28.1 pg (27.0-32.0); Mean Corpuscular Volume 87.6 fL (81-99); Mean Platelet Vol. 11.2 fl (6.2-12.0); Monocyte# 0.36 X10^3/uL; Monocyte% 7.4 % (0-10); NRBC Flagged by Analyzer 0 % (0-5); Neutrophil # 3.22 X10^3/uL (2.7-7.7); Neutrophil % 66.1 % (47-70); Platelet Count 198 K/mm3 (150-450); RBC Distribution Width CV 16.1 % (11.6-14.6); RBC Distribution Width SD 51.6 fl (35.1-43.9); Red Blood Count 4.34 M/mm3 (4.2-5.4); White Blood Count 4.9 K/mm3 (4.4-11.0)
[2024-05-13 11:54] LABS: Internal QC Validated? YES +Cl - CLEAR BKGD; Pregnancy, Serum, hCG Quali. NEGATIVE Negative
[2024-05-13 12:10] LABS: ALB/GLOB Ratio 1.1 RATIO (0.9-2.4); AST(SGOT) 19 U/L (15-37); Alanine Aminotransfer ALT/SGPT 22 U/L (13-56); Albumin, Serum 3.8 g/dL (3.2-5.0); Alkaline Phosphatase 63 U/L (45-117); Anion Gap 5 (5-15); BUN 8 mg/dL (7-18); BUN/Creat Ratio 9.8 RATIO (10-20); Calcium,Total 8.9 mg/dL (8.5-10.1); Chloride 104 mmol/L (98-107); Creatinine, Serum 0.82 mg/dL (0.55-1.02); EST Glomerular Filtration Rate 80 mL/min (>60); Est Glom Filt Rate - Afr Amer 96 mL/min (>60); Estimated Creatinine Clearance 66.36 ml/min; Globulin 3.4 g/dL (2.2-4.2); Glucose 83 mg/dL (74-106); Lipase 84 U/L (13-75); Potassium 3.8 mmol/L (3.5-5.1); Protein, Total 7.2 g/dL (6.4-8.2); Sodium Level 138 mmol/L (136-145)
[2024-05-13 13:08] VITALS: BP 99/64; PULSE 72; RESP 15; O2SAT 97
[2024-05-13 15:00] VITALS: BP 97/65; PULSE 69; RESP 18; O2SAT 100
--- NOTE | 2024-05-13 15:00 | CT_ITS ---
STUDY: CT ABDOMEN AND PELVIS WITH CONTRAST REASON FOR EXAM: Female, 49 years old. Epigastric pain RADIATION DOSAGE (If Supplied By Facility): CTDIvol = ( 11.61 ) mGy, DLP = ( 326.97 ) mGycm TECHNIQUE: Transaxial images were obtained from the dome of the diaphragm to the symphysis pubis without oral contrast. IV 100mL Isovue-300 was administered. Sagittal and coronal images were reconstructed. Individualized dose optimization techniques were used for this CT. COMPARISON: May 01, 2024 FINDINGS: The visualized lung bases are unremarkable. The visualized portions of the heart are within normal limits. Bilateral breast implants are noted Normal liver. The gallbladder has been removed surgically. . There is dilatation of the bile ducts as well as mild dilatation of the pancreatic duct . There is no calcified intraductal stone or definitive evidence for pancreatic mass.. MRI/MRCP would be useful for further evaluation if clinically warranted Normal spleen. . Normal bilateral adrenal glands. Normal right kidney. Normal left kidney. There is mild concentric thickening of the heart of the gastric fundus as well as the post bulbar duodenum which may be consistent with nonspecific gastroduodenitis. There is no evidence for small bowel obstruction . Normal colon. Index nonvisualized status post appendectomy Normal abdominal aorta. Normal inferior vena cava. Normal retroperitoneum. Normal urinary bladder. There is a small left ovarian cyst as well as fluid in the cul-de-sac possibly due to recent ovulation There is also suggestion of left hydrosalpinx. Pelvic sonogram would be useful for further evaluation Normal abdominal wall. Normal osseous structures. CT/Abdomen/Pelvis W IV Cont ONLY IMPRESSION: Postop change status post cholecystectomy. There is dilatation of the biliary tree as well as the pancreatic duct without definitive evidence for intraductal stone or pancreatic mass. MRI/MRCP would be helpful for further evaluation There are other findings which may be consistent with nonspecific gastroduodenitis Incidental finding of small left ovarian cyst and possible hydrosalpinx small amount of free fluid in the cul-de-sac possibly due to recent ovulation. Pelvic sonography would be helpful for further evaluation if indicated Electronically Signed: Diego Glynn MD at 16:53 EST ,
[2024-05-13 15:40] VITALS: BP 100/64; PULSE 75; RESP 17; TEMP 36.8; O2SAT 99
[2024-05-13 17:00] VITALS: BP 103/71; PULSE 69; RESP 14; O2SAT 99
--- NOTE | 2024-05-13 18:25 | PCM.HOSP.N ---
Hospitalist Note Called to admit patient for abdominal pain, patient with some right upper quadrant and suprapubic abdominal pain, CT showed some possible mild gastritis and dilation of the pancreatic and biliary ducts with no overt obstruction, no peripancreatic inflammation appreciated and lipase not greater than 3 times upper limit of normal. Patient evaluated at bedside and she is feeling much better, she reports extensive workup between [facility] and with ERCPs for this pain and these dilations without any specific findings. Given she is feeling better her preference is to go home instead of being admitted which is reasonable given current exam and patient report of extensive previous workup. Patient to attempt to eat and if she tolerates this can likely be discharged home, she has a follow-up with her OB/[facility] tomorrow (discussed her ovarian cyst and she has a history of these) and will follow-up with her PCP. Patient comfortable with this plan and knows to return to the ED if there are any further concerns. Discussed with covering ED provider, patient to eat and then final dispo to be decided
[2024-05-13 18:28] VITALS: BP 97/63; PULSE 67; RESP 18; TEMP 37; O2SAT 99
== END 2024-05-13 19:17 | disposition home or self-care (01) ==
PROVIDERS: Emergency Provider Emergency Medicine; PCP Family Medicine; Visit Provider Emergency Medicine
DX: K29.90 Gastroduodenitis, unspecified, without bleeding (principal); R74.8 Abnormal levels of other serum enzymes
CPT/HCPCS: 74177; 80053; 83690; 84703; 85025; 96361; 96374; 96375; 99285; J7030; Q9967; A4216; J2405